=== PATIENT | male | born 1965 | race Caucasian/White ===

== ENCOUNTER 2024-01-06 09:04 | Outpatient (OUT) | payer BC, SELFPAY ==
[2024-01-06 09:27] LABS: Basophils Absolute Auto 0.1 10^3/uL (0.0-0.1); Eosinophils Absolute Auto 0.1 10^3/uL (0.0-0.7); Eosinophils Percent Auto 1.5 % (0.9-7.0); Hematocrit 45.4 % (42.0-54.0); Hemoglobin 14.9 g/dL (14.0-18.0); Immature Granulocytes Abs Auto 0.01 10^3/uL (0.00-0.03); Immature Granulocytes Pct Auto 0.1 % (0.0-0.5); Lymphocytes Absolute Auto 1.8 10^3/uL (1.2-3.8); Lymphocytes Percent Auto 24.9 % (20.5-60.0); Mean Corpuscular HGB Conc 32.8 g/dL (29.9-35.2); Mean Corpuscular Hemoglobin 28.3 pg (25.9-34.0); Mean Corpuscular Volume 86.1 fL (80.0-94.0); Mean Platelet Volume 10.5 fL (9.5-13.5); Monocytes Absolute Auto 0.6 10^3/uL (0.3-0.8); Monocytes Percent Auto 8.3 % (1.7-12.0); Neutrophils Absolute Auto 4.7 10^3/uL (1.4-6.5); Neutrophils Percent Auto 64.2 % (43.0-75.0); Platelet Count 242 10^3/uL (150-450); Red Blood Count 5.27 10^6/uL (4.70-6.10); Red Cell Distribution Width 12.5 % (11.0-15.0); White Blood Count 7.3 10^3/uL (4.0-11.0)
[2024-01-06 09:42] LABS: Estimated Average Glucose 111 mg/dL; Glycohemoglobin A1C 5.5 % (4.5-6.2)
[2024-01-06 10:58] LABS: Alanine Aminotransferase 23 U/L (16-63); Albumin Globulin Ratio 1.1; Albumin Level 3.8 g/dL (3.4-5.0); Alkaline Phosphatase 73 U/L (46-116); Aspartate Amino Transferase 13 U/L (15-37); BUN Creatinine Ratio 15.4; Bilirubin Total 0.4 mg/dL (0.2-1.0); Calcium 9.1 mg/dL (8.5-10.1); Carbon Dioxide 27.3 mmol/L (21.0-32.0); Chloride 102 mmol/L (98-107); Chol HDL Ratio 4.5; Cholesterol 200 mg/dL (<=200); Estimated GFR (African America >60 (>=60); Estimated GFR (Non-African Ame >60 (>=60); Free T3 3.45 pg/mL (2.18-3.98); Globulin 3.5 g/dL; Glucose 92 mg/dL (74-106); HDL Cholesterol 44 mg/dL (40-60); Potassium 4.3 mmol/L (3.5-5.1); Sodium 138 mmol/L (136-145); Thyroid Stimulating Hormone 4.177 uIU/mL (0.358-3.740); Total Protein 7.3 g/dL (6.4-8.2); Triglycerides 195 mg/dL (<=150)
[2024-01-06 11:03] LABS: Prostate Specific Antigen Scrn 4.09 ng/mL (<=4.00)
[2024-01-08 04:07] LABS: PSA, Free 0.63 ng/mL; Prostate Specific Ag 3.3 ng/mL (0.0-4.0)
== END 2024-01-06 09:05 | disposition home or self-care (01) ==
LOC: LAB 09:07
PROVIDERS: PCP Family Medicine; Visit Provider Family Medicine
DX: Z00.00 Encounter for general adult medical examination without abnormal findings (principal); R97.20 Elevated prostate specific antigen [PSA]
CPT/HCPCS: 36415; 80053; 80061; 83036; 84153; 84154; 84436; 84443; 84481; 85025; G0103

== ENCOUNTER 2024-04-06 08:14 | Outpatient (OUT) | payer BC, SELFPAY ==
--- OUTSIDE RECORDS SUMMARY | 2024-04-06 08:28 | XMS_ITS | CCD ---
Author Organization 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 Role Phone DR ANDREA TORRES Admitting Unavailable SEBASTIÁN, DR MENDEZ Attending Unavailable SEBASTIÁN, DR MENDEZ Primary Care Unavailable SEBASTIÁN, DR MENDEZ Consulting Unavailable REQUEST, NONE LISTED Admitting Unavaila ble REQUEST, NONE LISTED Attending Unavaila ble SEBASTIÁN, DR MENDEZ Primary Care Unavailable REQUEST, NONE LISTED Consulting Unavaila ble Unavailable Primary Care Provider Unavailabl e Andrea Torres Primary Care Physician [phone] Jeff BAILEY Attending Unavailable Jeff BAILEY Attending Unavailable Andrea Torres Referring Unavailable MD Andrea Torres Primary Care Provider MD Ken Linda Attending Provider [phone] Ken Linda Attending Unavailable Ken Linda Admitting Unavailable Andrea Torres Primary Care Unavailable Medications Current Medications Medication Drug Class(es) Dates Sig (Normalized) Sig (Original) cetirizine hydrochloride 10 mg oral tablet (2 sources) Histamine-1 Receptor Antagonist Start: 03-30-2024 take 1 tablet by mouth once daily Cetirizine (24hour Allergy) 10 mg tablet Active 10 MG PO Daily March 30, 2024 12:00am Start: 02-11-2024 Zyrtec Daily, Refills(s) 0 Start Date: 02/11/24 Status: Ordered Emergen-C (2 sources) Start: 03-30-2024 take 1 tablet by charli th once daily Emergen-C Active 1 TAB PO Daily March 30, 2024 12:00am Start: 02-11-2024 Emergen-C Refi ll(s) 0 Start Date: 02/11/24 Status: Ordered minocycline 100 mg oral capsule (2 sources) Tetracycline-class Drug Start: 03-18-2024 take 100 mg by mouth once daily Minocycline Active 100 MG PO Daily March 18, 2024 12:00am Start: 02-11-2024 minocycline 10 0 mg Cap Refills(s) 0 Start Date: 02/11/24 Status: Ordered Aleve (1 source) Nonsteroidal Anti-inflammatory Drug Start: 02-11-2024 take 1 mg by mouth every twelve hours Aleve mg, Oral, q12hr, Refills(s) 0 Start Date: 02/11/24 Status: Ordered Sod Picosulf-Mag Ox-Citric Ac (1 source) Start: 01-29-2024 take 1 mL by mouth once daily Sod Picosulf-Mag Ox-Citric Ac (Clenpiq) 10 mg-3.5 gram- 12 gram/175 mL solution Active 175 ML PO Daily 1 January 29, 2024 12:00am please follow instructions provided by Dr. Linda's office. tamsulosin hydrochloride 0.4 mg oral capsule (2 sources) alpha-Adrenergic Gabriela Start: 03-18-2024 take 0.4 mg by mouth once daily Tamsulosin Active 0.4 MG PO Daily March 18, 2024 12:00am Start: 02-11-2024 tamsulosin 0.4 mg Cap Refills(s) 0 Start Date: 02/11/24 Status: Ordered Problems Problem Classification Problem Date Documented Da te Episodic/Chronic Hyperplasia of prostate (2 sources) Benign prostatic hypertrophy with outflow obstruction; Translations: [Benign prostatic hyperplasia with lower urinary tract symptoms] Onset: 02-11-2024 Chronic Other screening for suspected conditions (not mental disorders or infectious disease) (4 sources) Encounter for screening for malignant neoplasm of prostate; Translations: [Raised prostate specific antigen] Onset: 02-07-2022 Episodic Urinary tract infections (1 source) Urinary tract infectious disease; Translations: [Urinary tract infection, site not specified] Episodic Results Test Name Value Interpretation Reference Range Facility [facility] 02-12-2024 Forms [id number]#1 .00TIFF [facility] Physician Referralon 024 Physician Referral [id number]# 1.00TIFF [facility] Screenson 02-12-2024 Screens [id number] 1.00TIFF Normal [facility] Patient Educationon 02-11-20 Patient Education Oncology Prostate Cancer Screening Prostate cancer screening is testing that is done to check for the presence of prostate cancer in men. The prostate gland is a walnut-sized gland that is located below the bladder and in front of the rectum in males. The function of the prostate is to add fluid to semen during ejaculation. Prostate cancer is one of the most common types of cancer in men. Who should have prostate cancer screening? Screening recommendations vary based on age and other risk factors, as well as between the professional organizations who make the recommendations. In general, screening is recommended if: ? You are age 50 to 70 and have an average risk for prostate cancer. You should talk with your health care provider about your need for screening and how often screening should be done. Because most prostate cancers are slow growing and will not cause , screening in this age group is generally reserved for men who have a 10- to 15-year life expectancy. ? You are younger than age 50, and you have these risk factors: ? Having a father, brother, or uncle who has been diagnosed with prostate cancer. The risk is higher if your family member's cancer occurred at an early age or if you have multiple family members with prostate cancer at an early age. ? Being a male who is Black or is of [place] or sub-Saharan descent. In general, screening is not recommended if: ? You are younger than age 40. ? You are between the ages of 40 and 49 and you have no risk factors. ? You are 70 years of age or older. At this age, the risks that screening can cause are greater than the benefits that it may provide. If you are at high risk for prostate cancer, your health care provider may recommend that you have screenings more often or that you start screening at a younger age. How is screening for prostate cancer done? The recommended prostate cancer screening test is a blood test called the prostate-specific antigen (PSA) test. PSA is a protein that is made in the prostate. As you age, your prostate naturally produces more PSA. Abnormally high PSA levels may be caused by: ? Prostate cancer. ? An enlarged prostate that is not caused by cancer (benign prostatic hyperplasia, or BPH). This condition is very common in older men. ? A prostate gland infection (prostatitis) or urinary tract infection. ? Certain medicines such as male hormones (like testosterone) or other medicines that raise testosterone levels. A rectal exam may be done as part of prostate cancer screening to help provide information about the size of your prostate gland. When a rectal exam is performed, it should be done after the PSA level is drawn to avoid any effect on the results. Depending on the PSA results, you may need more tests, such as: ? A physical exam to check the size of your prostate gland, if not done as part of screening. ? Blood and imaging tests. ? A procedure to remove tissue samples from your prostate gland for testing (biopsy). This is the only way to know for certain if you have prostate cancer. What are the benefits of prostate cancer screening? ? Screening can help to identify cancer at an early stage, before symptoms start and when the cancer can be treated more easily. ? There is a small chance that screening may lower your risk of dying from prostate cancer. The chance is small because prostate cancer is a slow-growing cancer, and most men with prostate cancer from a different cause. What are the risks of prostate cancer screening? The main risk of prostate cancer screening is diagnosing and treating prostate cancer that would never have caused any symptoms or problems. This is called overdiagnosisand overtreatment. PSA screening cannot tell you if your PSA is high due to cancer or a different cause. A prostate biopsy is the only procedure to diagnose prostate cancer. Even the results of a biopsy may not tell you if your cancer needs to be treated. Slow-growing prostate cancer may not need any treatment other than monitoring, so diagnosing and treating it may cause unnecessary stress or other side effects. Questions to ask your health care provider ? When should I start prostate cancer screening? ? What is my risk for prostate cancer? ? How often do I need screening? ? What type of screening tests do I need? ? How do I get my test results? ? What do my results mean? ? Do I need treatment? Where to find more information ? The [employer]: www.cancer.org ? [employer]: www.auanet.org Contact a health care provider if: ? You have difficulty urinating. ? You have pain when you urinate or ejaculate. ? You have blood in your urine or semen. ? You have pain in your back or in the area of your prostate. Summary ? Prostate cancer is a common type of cancer in men. The prostate gland is located below the bladder and in front of the rectum. This gland adds flu (more content not included)... 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 Referral per Andrea Torres MD due to abnormal PSA PSA: 4.09 01/06/24 3.3 & 19.1% 01/08/24 Could not give a urine sample yet today Rafaeljessika put him on Tamsulosin for Nocturia- started January 14 2024 IPSS 11 Dysuria: denies Incomplete bladder emptying: denies Hematuria: _denies visible blood Frequency: _every hour Urgency: denies Nocturia: denies ( was 2-3x nightly before Tamsulosin) Stream: denies hesitation, normal stream Leaking: _denies Post void dripping: _yes Wearing pads/ Depends: _denies Urge incontinence: _denies Stress incontinence: _denies Incontinence without Sensory Awareness: _denies Abdominal pain: _denies Flank pain: _denies Sexual complaints: _denies History of Present Illness Tests reviewed: reviewed UA, PSA, and external records. I have reviewed the previous health record information and history for this patient from external provider. I have reviewed and verified the staff HPI to be accurate for this encounter. There have been no associated fever, chills, flank pain, or blood in the urine. Denies any urinary infections since last encounter. Review of Systems PHQ Score Initial Depression Screen Score: 0 SCORE ROS - Provider Constitutional: denies weight loss, denies hot flashes. Eyes: denies eye problems. Gastrointestinal: denies nausea, denies vomiting. Cardiovascular: denies chest pain or angina. Integumentary: no dryness Musculoskeletal: denies musculoskeletal symptoms. ENMT: denies otolaryngeal symptoms. Respiratory: no shortness of breath. Heme/Lymph: denies easy bleeding tendency, denies easy bruising tendency. Psychiatric: no confusion, no anxiety. Genitourinary: See HPI. Physical Exam Vitals & Measurements T: 37.0 ?C(Temporal Artery) HR: 84(Peripheral) BP: 136/84 HT: 71 in HT: 180 cm WT: 105.5 kg WT: 232.1 lb BMI: 32.56 General Appearance: alert, no distress, well nourished, well developed male. Genitourinary: normal scrotum, normal testes, normal urethra, normal epididymis, normal vas deferens/spermatic cord. Bladder: nonpalpable. Penis: normal shaft, normal glans. Prostate: normal prostate, estimated weight 35 gms, no hard nodule observed. Assessment/Plan Isma is a 58 yo male referred by Dr. Torres for abnormal PSA. Portions of this record may have been created with voice recognition artificial intelligence software, specifically [employer], [employer] and or [employer]. Substitutions may have occurred due to the inherent limitations of voice recognition and artificial intelligence software. 1. Elevated PSA (R97.20: Elevated prostate specific antigen [PSA]) PSA: 12/10/18 - 2.45 12/11/19 - 2.49 02/01/22 - 2.56 01/06/24 - 4.09 01/08/24 - 3.3 & 19.1% Pt states he had a SANDY prior to one of his latest PSA levels. He has an elevated PSA, which could indicate prostate cancer, prostate infection, prostate inflammation without infection, prostate manipulation, or benign prostate enlargement (BPH). The importance of the rate of PSA rise has also been discussed. The options for management have been discussed, including prostate biopsy versus close monitoring of the PSA over time. Trend remains elevated. Discussed options such as continued surveillance vs MRI which could indicate a bx pending findings. Will proceed with repeating PSA. -Follow up in 3 months w/ PSA FT 2. BPH with urinary obstruction (N40.1: Benign prostatic hyperplasia with lower urinary tract symptoms) IPSS 11 Dr. Torres started pt on Flomax at the end of December. Started on med due to nocturia. Prior to Flomax pt was getting up 2-3x per night. Reports he is no longer getting up during the night. Denies SEs while taking Flomax. Does report post void dribbling. SANDY: 35g, no nodules. -Cont Flomax 0.4mg qd -Pt will leave UA sample prior to leaving office Overall the patient is sent by Dr. Barger for elevation of his PSA. His holly values looking back over the years are as noted above. Interestingly the PSA dropped by about 0.7 within a couple days when the free percent was actually evaluated. For these reasons is my recommendation to closely monitor the PSA so we will repeat 1 with a repeat office visit about 3 months from his latest blood draw. He knows not to have intercourse/ejaculati on prior to the PSA level. He understands that this may increase the PSA slightly. He agrees with the plan and also understands that the workup for prostate cancer would involve an MRI of the prostate which could lead to a fusion biopsy. Follow-up With When Contact Information Jeff BAILEY MD, URL [address] [id number]- Additional Instructions: 3 mos w/ PSA FT Patient Education Prostate Cancer Screening I, Rosa Elena Temple, personally scribed for Dr. Bailey on 02/11/2024 09:29:03. . Documentati (more content not included)... Normal [facility] Comment on above: Result Comment: Elec tronically Signed By: Jeff BAILEY MD\.br\Date and Time Signed: 02/11/24 09:31 EDT\.br\Electronically Co-Signed By: Rosa Elena Temple\.br\Date and Time Co-Signed: 02/11/24 09:29 EDT CBC AUTO DIFFon 02-01-2022 BASO # 0.1 103/ul Normal 0.0-0.1 [facility] Comment on above: Performed By: #### C BC #### [facility] [address] [place] [address] Dr. Monster Cobian Basophils/100 WBC (Bld) 0.8 % Normal 0.2-2.0 [facility] Comment on above: Performed By: #### C BC #### [facility] [address] [address] [address] Mnoster Cobian EO # 0.1 103/ul Normal 0.0-0.7 [facility] Comment on above: Performed By: #### C BC #### [facility] [address] [place] [address] Dr. Monster Cobian Eosinophils/100 WBC (Bld) 1.6 % Normal 0.9-7.0 [facility] Comment on above: Performed By: #### C BC #### [facility] [address] [place] [address] Dr. Monster Cobian Erythrocyte distribution width (RBC) [Ratio] 12.4 % Normal 11.0-15.0 [facility] Comment on above: Performed By: #### C BC #### [facility] [address] [place] [address] Dr. Monster Cobian Hematocrit (Bld) [Volume fraction] 44.1 % Normal 42.0-54.0 [facility] Comment on above: Performed By: #### C BC #### [facility] [address] [place] [address] Dr. Monster Cobian Hemoglobin (Bld) [Mass/Vol] 14.9 g/dL Normal 14.0-18.0 [facility] Comment on above: Performed By: #### C BC #### [facility] [address] [place] [address] Dr. Monster Cobian IG # 0.02 10e3/ul Normal 0.00-0.03 [facility] Comment on above: Performed By: #### C BC #### [facility] [address] [place] [address] Dr. Monster Cobian IG % 0.3 % Normal 0.0-0.5 [facility] Comment on above: Performed By: #### C BC #### [facility] [address] [place] [address] Dr. Monster Cobian LYMPH # 2.0 103/ul Normal 1.2-3.8 [facility] Comment on above: Performed By: #### C BC #### [facility] [address] [place] [address] Dr. Monster Cobian Lymphocytes/100 WBC (Bld) 26.2 % Normal 20.5-60.0 [facility] Comment on above: Performed By: #### C BC #### [facility] [address] [place] [address] Dr. Monster Cobian MANUAL DIFF REQ NO Normal [facility] Comment on above: Performed By: #### C BC #### [facility] [address] [address] [address] Monster Cobian MCH (RBC) [Entitic mass] 29.0 pg Normal 25.9-34.0 [facility] Comment on above: Performed By: #### C BC #### [facility] [address] [place] [address] Dr. Monster Cobian MCHC (RBC) [Mass/Vol] 33.8 g/dL Normal 29.9-35.2 [facility] Comment on above: Performed By: #### C BC #### [facility] [address] [place] [address] Dr. Monster Cobian MCV (RBC) [Entitic vol] 85.8 fL Normal 80.0-94.0 [facility] Comment on above: Performed By: #### C BC #### [facility] [address] [place] [address] Dr. Monster Cobian MONO # 0.6 103/ul Normal 0.3-0.8 [facility] Comment on above: Performed By: #### C BC #### [facility] [address] [place] [address] Dr. Monster Cobian Monocytes/100 WBC (Bld) 7.9 % Normal 1.7-12.0 [facility] Comment on above: Performed By: #### C BC #### [facility] [address] [place] [address] Dr. Monster Cobian NEUT # 4.9 103/ul Normal 1.4-6.5 [facility] Comment on above: Performed By: #### C BC #### [facility] [address] [place] [address] Dr. Monster Cobian Neutrophils/100 WBC (Bld) 63.2 % Normal 43.0-75.0 [facility] Comment on above: Performed By: #### C BC #### [facility] [address] [place] [address] Dr. Monster Cobian Platelet mean volume (Bld) [Entitic vol] 9.7 fL Normal 9.5-13.5 [facility] Comment on above: Performed By: #### C BC #### [facility] [address] [address] [address] Monster Cobian PLT 251 103/ul Normal 150-450 [facility] Comment on above: Performed By: #### C BC #### [facility] [address] [address] [address] Monster Cobian RBC 5.14 106/ul Normal 4.70-6.10 [facility] Comment on above: Performed By: #### C BC #### [facility] [address] [address] [address] Monster Cobian WBC 7.7 103/ul Normal 4.0-11.0 [facility] Comment on above: Performed By: #### C BC #### [facility] [address] [place] [address] Dr. Monster Cobian GLYCOHEMOGLOBIN A1Con 2021 ADA RECOMMENDATION ADA THERAPEUTIC TARGET 6.0 - 7.0 ACTION SUGGESTED > 7.0 Normal [facility] Comment on above: Performed By: #### A 1C #### [facility] [address] [place] [address] Dr. Monster Cobian Glucose [Mass/Vol] 114 mg/dL Normal [facility] Comment on above: Performed By: #### A 1C #### [facility] [address] [place] [address] Dr. Monster Cobian HbA1c (Bld) [Mass fraction] 5.6 % Normal <=6.0 [facility] Comment on above: Performed By: #### A 1C #### [facility] [address] [place] [address] Dr. Monster Cobian LIPID PROFILEon 02-01-2022 CHOL-HDL RATIO NORM SEE BELOW Normal [facility] Comment on above: Result Comment: 3.3 - 4.4 LOW RISK 4.4 - 7.1 AVERAGE RISK 7.1 - 11.0 MODERATE RISK >11.0 HIGH RISK Performed By: #### C MP, LIPID #### [facility] [address] [place] [address] Dr. Monster Cobian Cholesterol [Mass/Vol] 210 mg/dL Critically high <=200 [facility] Comment on above: Performed By: #### C MP, LIPID #### [facility] [address] [address] [address] Monster Cobian Cholesterol in HDL [Mass/Vol] 48 mg/dL Normal 40-60 [facility] Comment on above: Performed By: #### C MP, LIPID #### [facility] [address] [address] [address] Monster Cobian Cholesterol in LDL [Mass/Vol] 140.6 mg/dL Normal [facility] Comment on above: Performed By: #### C MP, LIPID #### [facility] [address] [address] [address] Monster Cobian Cholesterol.total/Cho lesterol in HDL [Mass ratio] 4.4 {ratio} Normal [facility] Comment on above: Performed By: #### C MP, LIPID #### [facility] [address] [address] [address] Monster Cobian HDL NORMAL > or = 60 mg/dl - LO W CARDIOVASCULAR RISK <40 mg/dl - HIGH CARDIOVASCULAR RISK Normal [facility] Comment on above: Performed By: #### C MP, LIPID #### [facility] [address] [address] [address] Monster Cobian LDL CALC NORMAL SEE BELOW Normal [facility] Comment on above: Result Comment: <100 mg/dl OPTIMAL 100 - 129 mg/dl NEAR OR ABOVE OPTIMAL 130 - 159 mg/dl BORDERLINE HIGH 160 - 189 mg/dl HIGH >190 mg/dl VERY HIGH Performed By: #### C MP, LIPID #### [facility] [address] [address] [address] Monster Cobian Triglyceride [Mass/Vol] 107 mg/dL Normal <=150 [facility] Comment on above: Performed By: #### C MP, LIPID #### [facility] [address] [address] [address] Monster Cobian VLDL CALC 21.4 mg/dL Normal [facility] Comment on above: Performed By: #### C MP, LIPID #### [facility] [address] [place] [address] Dr. Monster Cobian PROF 14(COMP METB)on 022 Albumin [Mass/Vol] 3.9 g/dL Normal 3.4-5.0 [facility] Comment on above: Performed By: #### C MP, LIPID #### [facility] [address] [place] [address] Dr. Monster Cobian Albumin/Globulin [Mass ratio] 1.1 {ratio} Normal [facility] Comment on above: Performed By: #### C MP, LIPID #### [facility] [address] [place] [address] Dr. Monster Cobian ALP [Catalytic activity/Vol] 69 U/L Normal 46-116 [facility] Comment on above: Performed By: #### C MP, LIPID #### [facility] [address] [place] [address] Dr. Monster Cobian ALT [Catalytic activity/Vol] 23 U/L Normal 16-63 [facility] Comment on above: Performed By: #### C MP, LIPID #### [facility] [address] [place] [address] Dr. Monster Cobian Anion gap [Moles/Vol] 10.2 mmol/L Normal [facility] Comment on above: Performed By: #### C MP, LIPID #### [facility] [address] [place] [address] Dr. Monster Cobian AST [Catalytic activity/Vol] 13 U/L Critically low 15-37 [facility] Comment on above: Performed By: #### C MP, LIPID #### [facility] [address] [place] [address] Dr. Monster Cobian Bilirubin [Mass/Vol] 0.6 mg/dL Normal 0.2-1.3 [facility] Comment on above: Performed By: #### C MP, LIPID #### [facility] [address] [place] [address] Dr. Monster Cobian Calcium [Mass/Vol] 9.0 mg/dL Normal 8.5-10.1 [facility] Comment on above: Performed By: #### C MP, LIPID #### [facility] [address] [address] [address] Monster Cobian Chloride [Moles/Vol] 104 mmol/L Normal 98-107 [facility] Comment on above: Performed By: #### C MP, LIPID #### [facility] [address] [address] [address] Monster Cobian CO2 [Moles/Vol] 28.6 mmol/L Normal 22.0-30.0 [facility] Comment on above: Performed By: #### C MP, LIPID #### [facility] [address] [address] [address] Monster Cobian Creatinine [Mass/Vol] 0.96 mg/dL Normal 0.66-1.25 [facility] Comment on above: Performed By: #### C MP, LIPID #### [facility] [address] [place] [address] Dr. Monster Cobian EGFR-AF STATELESS >60 Normal >=60 [facility] Comment on above: Performed By: #### C MP, LIPID #### [facility] [address] [place] [address] Dr. Monster Cobian EGFR-NON AF STATELESS >60 Normal >=60 [facility] Comment on above: Performed By: #### C MP, LIPID #### [facility] [address] [place] [address] Dr. Monster Cobian Globulin (S) [Mass/Vol] 3.5 g/dL Normal [facility] Comment on above: Performed By: #### C MP, LIPID #### [facility] [address] [place] [address] Dr. Monster Cobian Glucose [Mass/Vol] 97 mg/dL Normal 74-106 [facility] Comment on above: Performed By: #### C MP, LIPID #### [facility] [address] [place] [address] Dr. Monster Cobian Potassium [Moles/Vol] 4.8 mmol/L Normal 3.4-5.0 [facility] Comment on above: Performed By: #### C MP, LIPID #### [facility] [address] [place], [place] [address] Dr. Monster Cobian Protein [Mass/Vol] 7.4 g/dL Normal 6.1-8.2 [facility] Comment on above: Performed By: #### C MP, LIPID #### [facility] [address] [place], [place] [address] Dr. Monster Cobian Sodium [Moles/Vol] 138 mmol/L Normal 137-145 [facility] Comment on above: Performed By: #### C MP, LIPID #### [facility] [address] [place], [place] [address] Dr. Monster Cobian Urea nitrogen [Mass/Vol] 17.0 mg/dL Normal 7.0-18.0 [facility] Comment on above: Performed By: #### C MP, LIPID #### [facility] [address] [place] [address] [address] Monster Cobian Urea nitrogen/Creatinine [Mass ratio] 17.7 mg/mg Normal [facility] Comment on above: Performed By: #### C MP, LIPID #### [facility] [address] [place], [place] [address] Dr. Monster Cobian Vital Signs Date Time Vital Sign Value Performing Clinician Mayelin nur 03-30-2024 09:19-0400 Diastolic blood pressure 90 mm[Hg] MD Andrea Torres Work Phone: [facility] 03-30-2024 09:19-0400 Heart rate 65 /min MD Andrea Torres Work Phone: [facility] 03-30-2024 09:19-0400 Respiratory rate 18 /min MD Andrea Torres Work Phone: [facility] 03-30-2024 09:190400 SaO2% (BldA) [Mass fraction] 99 % MD Andrea Torres Work Phone: [facility] 03-30-2024 09:190400 Systolic blood pressure 126 mm[Hg] MD Andrea Torres Work Phone: [facility] 03-30-2024 08:12-0400 Body height 177.8 cm MD Andrea Torres Work Phone: [facility] 03-30-2024 08:12-0400 Body weight 99.79 kg MD Andrea Torres Work Phone: [facility] 02-11-2024 09:02-0400 Blood Pressure Location Jeff BAILEY [facility] 02-11-2024 09:02-0400 Body temperature 98.6 [degF] Jeff BAILEY [facility] 02-11-2024 09:02-0400 Diastolic blood pressure 84 mm[Hg] Jeff BAILEY [facility] 02-11-2024 09:02-0400 Heart rate 84 /min Jeff BAILEY [facility] 02-11-2024 09:02-0400 Systolic blood pressure 136 mm[Hg] Jeff BAILEY [facility] Encounters Encounter Date Encounter Type Care Provider Facility Start: 04-13-2024 ambulatory Jeff BAILEY Facility :[facility] Start: 03-30-2024 Non-patient / Non-visit MD Andrea Torres Work Phone: [facility] G[facility] Work Phone: Start: 03-30-2024 End: 03-30-2024 Admission to same day surgery center MD Andrea Torres Work Phone: [facility] Work Phone: Start: 03-30-2024 End: 03-30-2024 ambulatory MD Andrea Torres Work Phone: [facility] Work Phone: Start: 02-11-2024 End: 02-12-2024 ambulatory Jeff BAILEY Facility:[facility] Start: 02-11-2024 End: 02-11-2024 Patient encounter procedure Jeff BAILEY [facility] Start: 01-09-2024 ambulatory eJff BAILEY Facility:[facility] Start: 05-04-2022 Orders Only Jonathan Schroeder MD Work Phone: Urology Comment on above: Urinary tract infect ion with hematuria, site unspecified (Primary Dx) Start: 02-07-2022 Encounter for genera l adult medical examination without abnormal findings DR ANDREA TORRES [facility] Start: 02-01-2022 End: 02-02-[address] ANDREA TORRES Facility:[facility] Start: 02-01-2022 End: 02-02-2022 Encounter for general adult medical examination without abnormal findings DR ANDREA TORRES Facility:[facility] Start: 02-09-2021 End: 02-10-[address] MILLS LISTED REQUEST Facility:[facility] Procedures Date Procedure Procedure Detail Performing Clinician Start: 03-30-2024 Screening colonoscopy Reba Torres Work Phone: Start: 02-01-[address] VIV TORRES Comment on above: Performed By: #### P [facility] #### [facility] [address] [place] [address] Dr. Monster Cobian Plan of Treatment Date Care Activity Detail Author Start: 03-30-2024 [facility] Bacteria identified in Urine by Culture URINE CULTURE Microbiology Routine Urinary tract infection with hematuria, site unspecified Ordered: 05/05/2022 [facility] Work Phone: Comment on above: Ordered: 05/05/2022 Patient Education Diverticulosis (DC) Know your Meds [facility] Work Phone: Immunizations Immunization Date Immunization Notes Care Provider Filiberto levin 10-06-2023 zoster vaccine recombinant Jeff BAILEY [facility] [place] 07-10-2023 zoster vaccine recombinant Jeff BAILEY [facility] 08-11-2021 influenza, unspecifi ed formulation Jeff [facility] 02-09-2021 SARS-CoV-2 (COVID-19 ) mRNA BNT-162b2 vax [employer] [facility] 01-20-2021 SARS-CoV-2 (COVID-19 ) mRNA BNT-162b2 vax [employer] [facility] 09-17-2019 influenza, unspecifi ed formulation [employer] [facility] Payers Date Payer Category Payer Unknown [id number] 1965 Unknown [id number] [id number] 1965 Unknown [id number] [id number] 1959 Self-pay 1959 Unknown [id number] Unknown [id number] Unknown [id number] [id number] [id number] Social History Date Type Detail Facility Tobacco smoking status SDIS Tobacco smoking consumption unknown [facility] Start: 1965 Sex Assigned At Not on file C [facility] Start: 02-11-2024 End: 03-30-2024 Tobacco smoking status Never smoked tobacco (finding) [facility] Tobacco smoking status Never [facility] Sex Assigned At Male [facility] Start: 1965 Sex Assigned At Male [facility] Goals Date Patient Goal Desired Activity /State Functional Status Date Assessment Result Facility 02-11-2024 Functional Status N/A [facility] History and physical note 03-30-2024 Note Date & Type Note Facility 03-30-2024 History and physical note Note Date/Time March 30, 2024 8:33 am [facility] [address] [place] [id number] Gastroenterology H&P Signed Patient: Isma Hwang MR#: [id number] : 1965 Acct:[id number] Age/Sex: 58 / M Adm Date: 4 Loc: Room: Type: [facility] Attending Dr: Ken Linda MD Copies to: MD Andrea Guzman MD~ Date of Service: 03/30/2024 HISTORY & PHYSICAL: Patient's history with special attention to the cardiovascular, pulmonary systems and the current problem was reviewed with the patient immediately prior to the procedure. Present medications and doses reviewed in the EMR. Allergies and pertinent laboratory tests were also reviewedat this time in the EMR. The physical examination, as below, was then performed. Indication, assessment and HPI: 58-year-old male presents for screening colonoscopy Family history of GI malignancy? No PHYSICAL EXAMINATION Mouth and Pharynx : Moist mucus membranes, normal dentition Cardiac: Regular rate, regular rhythm Pulmonary: Clear to auscultation bilaterally, no wheezing Neurological: Alert and oriented x3, no focal deficits noted Abdomen: Abdomen soft, non-tender REVIEW OF SYSTEMS Constitutional: Denies malaise, fevers Cardiovascular: Denies chest pain, palpitations Respiratory: Denies shortness of breath, wheezing Gastrointestinal: Per HPI Genitourinary: Denies dysuria, polyuria Musculoskeletal: Denies joint swelling, joint stiffness Neurological: Denies numbness, tingling Integumentary: Denies rashes, skin lesions Endocrine: Denies fatigue, weight loss Written informed consent obtained from the patient. Risks (including but not limited to perforation, infection, bloating, bleeding, need for emergent surgeryand loss of life), benefits and alternatives explained and questions answered. The patient verbalized understanding. Based on history patient is an appropriate candidate for the procedure. Ken Linda MD Documented By: Ken Linda MD 03/30/24 0833 Signed By: <Electronically signed by Ken Linda MD> 03/30/248[address] [facility] Work Phone: Procedure note 03-30-2024 Note Date & Type Note Facility 03-30-2024 Procedure note [facility] Hospital Discharge instructions 02-11-2024 Note Date & Type Note Facility 02-11-2024 Hospital Discharge instructions Patient Education 02/11/2024 09:25:27 Prostate Cancer Screening Prostate Cancer Screening Prostate cancer screening is testing that is done to check for the presence of prostate cancer in men. The prostate gland is a walnut-sized gland that is located below the bladder and in front of the rectum in males. The function of the prostate is to add fluid to semen during ejaculation. Prostate cancer is one of the most common types of cancer in men. Who should have prostate cancer screening? Screening recommendations vary based on age and other risk factors, as well as between the professional organizations who make the recommendations. In general, screening is recommended if: You are age 50 to 70 and have an average risk for prostate cancer. You should talk with your health care provider about your need for screening and how often screening should be done. Because most prostate cancers are slow growing and will not cause , screening in this age group is generally reserved for men who have a 10- to 15-year life expectancy. You are younger than age 50, and you have these risk factors: ?Having a father, brother, or uncle who has been diagnosed with prostate cancer. The risk is higher if your family member's cancer occurred at an early age or if you have multiple family members with prostate cancer at an early age. ?Being a male who is Black or is of [place] or sub-Saharan descent. In general, screening is not recommended if: You are younger than age 40. You are between the ages of 40 and 49 and you have no risk factors. You are 70 years of age or older. At this age, the risks that screening can cause are greater than the benefits that it may provide. If you are at high risk for prostate cancer, your health care provider may recommend that you have screenings more often or that you start screening at a younger age. How is screening for prostate cancer done? The recommended prostate cancer screening test is a blood test called the prostate-specific antigen (PSA) test. PSA is a protein that is made in the prostate. As you age, your prostate naturally produces more PSA. Abnormally high PSA levels may be caused by: Prostate cancer. An enlarged prostate that is not caused by cancer (benign prostatic hyperplasia, or BPH). This condition is very common in older men. A prostate gland infection (prostatitis) or urinary tract infection. Certain medicines such as male hormones (like testosterone) or other medicines that raise testosterone levels. A rectal exam may be done as part of prostate cancer screening to help provide information about the size of your prostate gland. When a rectal exam is performed, it should be done after the PSA level is drawn to avoid any effect on the results. Depending on the PSA results, you may need more tests, such as: A physical exam to check the size of your prostate gland, if not done as part of screening. Blood and imaging tests. A procedure to remove tissue samples from your prostate gland for testing (biopsy). This is the only way to know for certain if you have prostate cancer. What are the benefits of prostate cancer screening? Screening can help to identify cancer at an early stage, before symptoms start and when the cancer can be treated more easily. There is a small chance that screening may lower your risk of dying from prostate cancer. The chance is small because prostate cancer is a slow-growing cancer, and most men with prostate cancer from a different cause. What are the risks of prostate cancer screening? The main risk of prostate cancer screening is diagnosing and treating prostate cancer that would never have caused any symptoms or problems. This is called overdiagnosisand overtreatment. PSA screening cannot tell you if your PSA is high due to cancer or a different cause. A prostate biopsy is the only procedure to diagnose prostate cancer. Even the results of a biopsy may not tell you if your cancer needs to be treated. Slow-growing prostate cancer may not need any treatment other than monitoring, so diagnosing and treating it may cause unnecessary stress or other side effects. Questions to ask your health care provider When should I start prostate cancer screening? What is my risk for prostate cancer? How often do I need screening? What type of screening tests do I need? How do I get my test results? What do my results mean? Do I need treatment? Where to find more information The [employer]: www.cancer.org [employer]: www.auanet.org Contact a health care provider if: You have difficulty urinating. You have pain when you urinate or ejaculate. You have blood in your urine or semen. You have pain in your back or in the area of your prostate. Summary Prostate cancer is a common type of cancer in men. The prostate gland is located below the bladder and in front of the rectum. This gland adds fluid to semen during ejaculation. Prostate cancer screening may identify cancer at an early stage, when the cancer can be treated more easily and is less likely to have spread to other areas of the body. The prostate-specific antigen (PSA) test is the recommended screening test for prostate cancer, but it has associated risks. Discuss the risks and benefits of prostate cancer screening with your health care provider. If you are age 70 or older, the risks that screening can cause are greater than the benefits that it may provide. This information is not intended to replace advice given to you by your health care provider. Make sure you discuss any questions you have with your health care provider. Document Revised: 04/02/2022 Document Reviewed: 04/02/2022 [employer] Patient Education 2022 [employer]. Follow Up Care 01/13/2024 15:32:49 With:LEO DIAZ, Jeff Sanchez, URL Address: [facility] [place] [address]- When: Unknown [facility] Progress note 05-04-2022 Note Date & Type Note Facility 05-04-2022 Note HNO ID: [id number] Author: Lida Sparrow LPN Service: ? Author Type: LICENSED NURSE Type: Progress Notes Filed: 05/05/2022 6:47 PM Note Text: Patient was seen to have SPT exchange from 14fr to 16fr. Urine obtained via new indwelling spt catheter. [facility] History of Present illness Narrative 05-04-2022 Lida Sparrow LPN - 05/04/2022 8:36 AM EDT Note Date & Type Note Facility 05-04-2022 History of Presen t illness Narrative Patient was seen to have SPT exchange from 14fr to 16fr. Urine obtained via new indwelling spt catheter. documented in this encounter [facility] Evaluation + Plan note Note Date & Type Note Facility Evaluation + Plan note Future Appointments Appointment Date:04/13/2024 09:15:00 AM Scheduled Provider:Jeff BAILEY MD Location:[facility] Appointment Type:URO Office Visit Diagnostic Tests PendingPSA Free & Total 02/11/24 [facility] Evaluation note Note Date & Type Note Facility Evaluation note Diagnosis Urinary tract infection with hematuria, site unspecified- Primary documented in this encounter [facility] Evaluation note Note Date & Type Note Facility Evaluation note No assessment information availa [facility] Work Phone: Hospital course Narrative Note Date & Type Note Facility Hospital course Narrative No data available for this section [facility] Progress note Note Date & Type Note Facility Progress note No data available for this section [facility] Summary Purpose Family History No Family History Records Found Relationship Condition Age at Onset Recorded Date/T chucky Not Specified Non-Hodgkin's lymphoma Unknown Diabetes mellitus Unknown father Aneurysm Unknown Diverticulitis Unknown Advance Directives No Advanced Directives Records Found Advance Directive Response Recorded Date/ Time Advance Directives No March 27 1:17pm Chief Complaint and Reason for Visit Chief Complaint Screening Screening Additional Source Comments (unrecognized sect ion and content) No Status Records FoundNo Status Records FoundNo Status Records FoundNo Status Records Found INFORMATION SOURCE (unrecogn ized section and content) DATE CREATED AUTHOR 02/08/2022 [facility] DATE CREATED AUTHOR AUTHOR'S ORGANIZ ATION 05/10/2022 [facility] DATE CREATED AUTHOR AUTHOR'S ORGANIZ ATION 02/13/2024 [facility] DATE CREATED AUTHOR AUTHOR'S ORGANIZ ATION 04/03/2024 [facility] Source Comments (unrecognize d section and content) In the event this informatio n is protected by the Federal Confidentiality of Alcohol and Drug Abuse Patient Records regulations: The Federal rules restrict any use of the information to criminally investigate or prosecute any alcohol or drug abuse patient.[facility] Patient Care team informatio n (unrecognized section and content) Team Status: Active Member Role Status Dates Andrea Torres MD Primary Care Provider Active Team Status: Inactive Member Role Status Dates Andrea Torres MD Primary Care Provider Active Start: March 30, 2024 End: March 30, 2024 Ken Linda MD Attending Provider Active S tart: March 30, 2024 End: March 30, 2024 Team Status: Active Member Role Status Dates Andrea Torres MD Primary Care Provider Active Start: March 30, 2024 Ken Linda MD Attending Provider, Other Provide r Active Start: March 30, 2024 FOR RECORDS PERTAINING TO PATIENTS WHO ARE OR HAVE BEEN ENROLLED IN A CHEMICAL DEPENDENCY/SUBSTANCEABUSE PROGRAM, SOME INFORMATION MAY BE OMITTED. This clinical summary was aggregated from multiple sources. Caution should be exercised in using it in the provision of clinical care. This summary normalizes information from multiple sources, and as a consequence, information in this document may materially change the coding, format and clinical context of patient data. In addition, data may be omitted in some cases. CLINICAL DECISIONS SHOULD BE BASED ON THE PRIMARY CLINICAL RECORDS. [employer] [facility]. provides no warranty or guarantee of the accuracy or completeness of information in this document.
[2024-04-07 12:09] LABS: PSA, Free 0.51 ng/mL; Prostate Specific Ag 2.8 ng/mL (0.0-4.0)
== END 2024-04-06 08:15 | disposition home or self-care (01) ==
LOC: LAB 08:16
PROVIDERS: PCP Family Medicine; Visit Provider Urology
DX: R97.20 Elevated prostate specific antigen [PSA] (principal)
CPT/HCPCS: 36415; 84153; 84154

== ENCOUNTER 2024-11-03 08:42 | Outpatient (OUT) | payer BC, SELFPAY ==
--- NOTE | 2024-11-03 08:57 | XR_ITS ---
[address] [address] Patient Name: SHMUEL DURAN MRN: [id number] date: 1965 Sex: M Assigned Patient Location: LAB Current Patient Location: LAB Accession/Order Number: [id number] Exam Date: 11/03/2024 09:02 Report Date: 11/03/2024 18:36 At the request of: ANDREA LOWERY Procedure: XR cervical spine 2-3V EXAM: XR cervical spine 2-3V HISTORY: Arm Paresthesia Left COMPARISON: None. FINDINGS/IMPRESSION: 1. No acute fracture or dislocation. 2. Prevertebral soft tissues are normal. 3. Normal alignment of the cervical spine. 4. Vertebral body height is preserved. Intervertebral disc height is preserved. 5. Visualized portion of the lung apices is clear. Electronically authenticated by: SHELBI BAZAN Date: 11/03/2024 18:36
[2024-11-03 08:59] LABS: Basophils Absolute Auto 0.1 10^3/uL (0.0-0.1); Basophils Percent Auto 0.8 % (0.2-2.0); Eosinophils Absolute Auto 0.1 10^3/uL (0.0-0.7); Eosinophils Percent Auto 1.2 % (0.9-7.0); Hematocrit 43.2 % (42.0-54.0); Hemoglobin 14.5 g/dL (14.0-18.0); Immature Granulocytes Abs Auto 0.01 10^3/uL (0.00-0.03); Immature Granulocytes Pct Auto 0.1 % (0.0-0.5); Lymphocytes Absolute Auto 1.9 10^3/uL (1.2-3.8); Lymphocytes Percent Auto 22.9 % (20.5-60.0); Mean Corpuscular HGB Conc 33.6 g/dL (29.9-35.2); Mean Corpuscular Volume 86.4 fL (80.0-94.0); Mean Platelet Volume 10.1 fL (9.5-13.5); Monocytes Absolute Auto 0.6 10^3/uL (0.3-0.8); Monocytes Percent Auto 7.1 % (1.7-12.0); Neutrophils Absolute Auto 5.7 10^3/uL (1.4-6.5); Neutrophils Percent Auto 67.9 % (43.0-75.0); Platelet Count 247 10^3/uL (150-450); Red Cell Distribution Width 13.2 % (11.0-15.0); White Blood Count 8.3 10^3/uL (4.0-11.0)
--- OUTSIDE RECORDS SUMMARY | 2024-11-03 09:00 | XMS_ITS | CCD ---
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 Name Role Phone DR ANDREA TORRES Admitting Unavailable MELISSA, DR MENDEZ Attending Unavailable MELISSA, DR MENDEZ Primary Care Unavailable MELISSA, DR MENDEZ Consulting Unavailable REQUEST, NONE LISTED Admitting Unavaila ble REQUEST, NONE LISTED Attending Unavaila ble MELISSA, DR MENDEZ Primary Care Unavailable REQUEST, NONE LISTED Consulting Unavaila ble Unavailable Primary Care Provider Unavailabl e Andrea Torres Primary Care Physician [phone] MD Andrea Torres Primary Care Provider [id number] MD Ken Linda Attending Provider MD Josette Nova Emergency Provider [phone] MD Andrea Torres Primary Care Provider [phone] DO Guilherme Joseph Admit Provider DO Guilherme oJseph Attending Provider MD Sandy Henderson Other Provider Jeff BAILEY Attending Unavailable Jeff BAILEY Attending Unavailable Jeff BAILEY Attending Unavailable Andrea Torres Referring Unavailable Ken Linda Attending Unavailable Ken Linda Admitting Unavailable Andrea Torres Primary Care Unavailable Andrea Torres Primary Care Unavailable Guilherme Joseph Attending Unavailable Guilherme Joseph Admitting Unavailable Guilherme Joseph Attending Unavailable Guilherme Joseph Admitting Unavailable Sandy Henderson Consulting Unavailable Andrea Torres Primary Care Unavailable Allergies Allergy Classification Reported Allergen(s) Allergy Type Date of Onset Reaction(s) Facility (1 source) No Known Medication Allergies; Translations: [No Known Medication Allergies] Propensity to adverse reactions (disorder) [facility] Repository Medications Current Medications Medication Drug Class(es) Dates Sig (Normalized) Sig (Original) aspirin 81 mg delayed release oral tablet (1 source) Platelet Aggregation Inhibitor, Nonsteroidal Anti-inflammatory Drug Start: 08-25-2024 take 81 mg by mouth once daily Aspirin Active 81 MG PO Daily August 25, 2024 12:00am atorvastatin 80 mg oral tablet (1 source) HMG-CoA Reductase Inhibitor Start: 08-25-2024 take 80 mg by mouth once daily in the evening Atorvastatin Active 80 MG PO Every evening August 25, 2024 12:00am cetirizine hydrochloride 10 mg oral tablet (4 sources) Histamine-1 Receptor Antagonist Start: 03-30-2024 take 1 tablet by mouth once daily Cetirizine (24hour Allergy) 10 mg tablet Active 10 MG PO Daily March 29, 2024 11:00pm Start: 02-11-2024 Zyrtec Daily, Refills(s) 0 Start Date: 02/11/24 Status: Ordered Emergen-C (4 sources) Start: 03-30-2024 take 1 tablet by charli th once daily Emergen-C Active 1 TAB PO Daily March 29, 2024 11:00pm Start: 03-30-2024 take 1 tablet by charli th once daily Emergen-C Active 1 TAB PO Daily March 30, 2024 12:00am Start: 02-11-2024 Emergen-C Refi ll(s) 0 Start Date: 02/11/24 Status: Ordered lisinopril 2.5 mg oral tablet (1 source) Angiotensin Converting Enzyme Inhibitor Start: 08-25-2024 take 2.5 mg by mouth once daily Lisinopril Active 2.5 MG PO Daily August 25, 2024 12:00am metoprolol tartrate 25 mg oral tablet (1 source) beta-Adrenergic Gabriela Start: 08-25-2024 take 25 mg by mouth twice daily Metoprolol Tartrate Active 25 MG PO Twice daily August 25, 2024 12:00am minocycline 100 mg oral capsule (4 sources) Tetracycline-class Drug Start: 02-11-2024 take 100 mg by mouth once daily in the morning Minocycline Active 100 MG PO Every morning March 17, 2024 11:00pm Aleve (2 sources) Nonsteroidal Anti-inflammatory Drug Start: 02-11-2024 take 1 mg by mouth every twelve hours Aleve mg, Oral, q12hr, Refills(s) 0 Start Date: 02/11/24 Status: Ordered nitroglycerin 0.4 mg sublingual tablet (1 source) Nitrate Vasodilator Start: 08-25-2024 Nitroglycerin Active 0.4 MG SUBLINGUAL Q5M 25 August 25, 2024 12:00am Sod Picosulf-Mag Ox-Citric Ac (2 sources) Start: 01-29-2024 take 1 mL by mouth once daily Sod Picosulf-Mag Ox-Citric Ac (Clenpiq) 10 mg-3.5 gram- 12 gram/175 mL solution Active 175 ML PO Daily 10 21January 28, 2024 11:00pm please follow instructions provided by Dr. Linda's office. Start: 01-29-2024 take 1 mL by mouth once daily Sod Picosulf-Mag Ox-Citric Ac (Clenpiq) 10 mg-3.5 gram- 12 gram/175 mL solution Active 175 ML PO Daily 10 21January 29, 2024 12:00am please follow instructions provided by Dr. Linda's office. tamsulosin hydrochloride 0.4 mg oral capsule (4 sources) alpha-Adrenergic Gabriela Start: 02-11-2024 take 0.4 mg by mouth once daily Tamsulosin Active 0.4 MG PO Daily March 17, 2024 11:00pm ticagrelor 90 mg oral tablet (1 source) Start: 08-25-2024 take 1 tablet by mouth twice daily Ticagrelor (Brilinta) 90 mg Tablet Active 90 MG PO Twice daily 180 90 August 25, 2024 12:00am Problems Active Problems Problem Classification Problem Date Documented Da te Episodic/Chronic Acute myocardial infarction (3 sources) Myocardial infarction; Translations: [ST elevation (STEMI) myocardial infarction of unspecified site] Onset: 08-24-2024 08-24-2024 Chronic Hyperplasia of prostate (4 sources) Benign prostatic hypertrophy with outflow obstruction; Translations: [Benign prostatic hyperplasia with lower urinary tract symptoms] Onset: 02-11-2024 Chronic Other aftercare (1 source) Encounter for other specified aftercare; Translations: [Encounter for other specified aftercare] Onset: 10-30-2024 Episodic Urinary tract infections (1 source) Urinary tract infectious disease; Translations: [Urinary tract infection, site not specified] Episodic Past or Other Problems Problem Classification Problem Date Documented Da te Episodic/Chronic Other screening for suspected conditions (not mental disorders or infectious disease) (8 sources) Encounter for screening for malignant neoplasm of prostate; Translations: [Raised prostate specific antigen] Onset: 02-07-2022 Episodic Results Test Name Value Interpretation Reference Range Facility Automated basophil %Ordered By: Guilherme Joseph on 08-25-2024 Basophils/100 WBC (Bld) 0.5 % Normal . [facility] Comment on above: Performed By: #### C BC, BMP #### [address] Automated basophil countOrde red By: Guilherme Joseph on 08-25-2024 Basophils (Bld) [#/Vol] 0.1 10*3/uL Normal 0.0-0.2 [facility] Comment on above: Result Comment: PERF ORMED BY: [place] [address] PATHOLOGIST PAPER COATING SUPERVISOR LAYLA CAI M.D. Performed By: #### C BC, BMP #### [address] Automated blood monocyte cou ntOrdered By: Guilherme Joseph on 08-25-2024 Monocytes (Bld) [#/Vol] 0.9 10*3/uL High 0.0-0.8 [facility] Comment on above: Performed By: #### C BC, BMP #### [address] Automated eosinophil %Ordere d By: Guilherme Joseph on 08-25-2024 Eosinophils/100 WBC (Bld) 1.5 % Normal . [facility] Comment on above: Performed By: #### C BC, BMP #### [address] Automated eosinophil countOr dered By: Guilherme Joseph on 08-25-2024 Eosinophils (Bld) [#/Vol] 0.2 10*3/uL Normal 0.0-0.45 [facility] Comment on above: Performed By: #### C BC, BMP #### [address] Automated monocyte %Ordered By: Guilherme Joseph on 08-25-2024 Monocytes/100 WBC (Bld) 9.0 % Normal . [facility] Comment on above: Performed By: #### C BC, BMP #### [facility] [address] Automated neutrophil %Ordere d By: Guilherme Joseph on 08-25-2024 Neutrophils/100 WBC (Bld) 66.4 % Normal . [facility] Comment on above: Performed By: #### C BC, BMP #### [facility] [address] Basic Metabolic Panelon 11 Creatinine Clr Calc Pharmacy 103.07 Normal [facility] Comment on above: Result Comment: PERF ORMED BY: [place] [address] PATHOLOGIST PAPER COATING SUPERVISOR LAYLA CAI M.D. Performed By: #### C BC, BMP ####[address] GFR/1.73 sq M.predicted MDRD (S/P/Bld) [Vol rate/Area] mL/min/{1.73_m2} Normal [facility] Comment on above: Performed By: #### C BC, BMP ####[address] Calcium [Mass/volume] in Ser um or PlasmaOrdered By: Guilherme Joseph on 08-25-2024 Calcium [Mass/Vol] 9.1 mg/dL Normal 8.6-10.3 [facility] Comment on above: Performed By: #### C BC, BMP ####[address] Carbon dioxide, total [Moles /volume] in Serum or PlasmaOrdered By: Guilherme Joseph on 08-25-2024 CO2 [Moles/Vol] 26.0 mmol/L Normal 21.0-31.0 [facility] Comment on above: Performed By: #### C BC, BMP ####[address] [place] [address] [place] Chloride [Moles/volume] in S stephany or PlasmaOrdered By: Guilherme Joseph on 08-25-2024 Chloride [Moles/Vol] 104 mmol/L Normal 98-107 [facility] Comment on above: Performed By: #### C BC, BMP ####[facility] Complete Blood Count Auto Di ffon 08-25-2024 Mean Corpuscular HGB Conc 34.0 g/dL Normal 32.5-35.6 [facility] Comment on above: Performed By: #### C JAMES, BMP #### [facility] [address] NRBC% 0.0 /100{WBC} Normal 0-0.5 [facility] Comment on above: Performed By: #### C BC, BMP #### [facility] [address] Creatinine [Mass/volume] in Serum or PlasmaOrdered By: Guilherme Joseph on 08-25-2024 Creatinine [Mass/Vol] 0.94 mg/dL Normal 0.70-1.30 [facility] Comment on above: Performed By: #### C BC, BMP ####[facility] [place] [address] ECG 12 lead ECGon 08-25-2024 ECG 12 lead ECG [facility] Main [place] [address] [place] [address] Electrocardiograph Report Signed Patient: Isma Hwang MR#: [id number] 57 : 1965 Acct:[id number] Age/Sex: 59 / M ADM Date: 08/24/24 Loc: Room: [address] [place] [address] Type: ADM IN Attending Dr: Guilherme Joseph DO Ordering Provider: Guilherme Joseph DO Date of Service: 08/25/2403/13/500 ECG/ECG 12 lead ECG: Inferior STEMI Copies to: Test Reason : Blood Pressure : 124/86 mmHG Vent. Rate : 81 BPM Atrial Rate : 81 BPM P-R Int : 176 ms QRS Dur : 78 ms QT Int : 416 ms P-R-T Axes : 96 91 2 degrees QTcB Int : 483 ms Normal sinus rhythm Rightward axis Low voltage QRS Cannot rule out Inferior infarct , age undetermined Abnormal ECG When compared with ECG of 24-Aug-2024 07:26, QT has lengthened Confirmed by ERIN DIAZ [facility] [place] ([id number]) on 08/25/2024 2:23:22 PM Referred By: Electronically Signed By: KWAKU GARCES MD [facility] Transcribed By: MUS Signed By Kwaku Garces MD, [facility] 08/25/24 1423 Normal [facility] echo transthoracicon [facility] echo transthoracic [facility] Main [place] [address] [place] [address] Echocardiogram Signed Patient: Isma Hwang MR#: [id number] 57 : 1965 Acct:[id number] Age/Sex: 59 / M ADM Date: 08/24/24 Loc: Room: [address] [place] [address] Type: ADM IN Attending Dr: Guilherme Joseph DO Ordering Provider: Guilherme Joseph DO Date of Service: 08/25/2403/13/500 [facility] echo transthoracic: Inferior STEMI Copies to: Kwaku Garces MD, [facility] Guilherme Joseph DO BSA: 2.2 m2 BP: 122/83 mmHg HR: 66 Reason For Study: Inferior STEMI History: CAD Interpretation Summary Ejection Fraction = 55-60%. The left ventricular size, thickness and function are normal The left ventricular wall motion is normal. A variety of Doppler measurements indicate normal left ventricular diastolic function. There is no prior echocardiogram noted for this patient. Normal transthoracic echocardiogram. Procedure/Quality: A two-dimensional transthoracic echocardiogram with color flow and Doppler was performed. The study was technically good in quality. There is no prior echocardiogram noted for this patient. Left Ventricle: The left ventricular size, thickness and function are normal. Ejection Fraction = 55-60%. A variety of Doppler measurements indicate normal left ventricular diastolic function. The left ventricular wall motion is normal. Left Atrium: The left atrium appears normal in size. The atrial septum appears normal. Right Atrium: The right atrium appears normal in size. Right Ventricle: The right ventricular size, thickness and function are normal. Aortic Valve: The aortic valve is normal in structure and function. No aortic regurgitation is present. Mitral Valve: The mitral valve is normal in structure and function. There is no mitral regurgitation noted. Tricuspid Valve: The tricuspid valve is normal in structure and function. No tricuspid regurgitation. Pulmonic Valve: The pulmonic valve is normal in structure and function. Arteries: The aortic root is normal size. Pericardium/Pleura: No pericardial effusion seen. There is no pleural effusion. IVC/Hepatic Veins: The inferior vena cava is normal in size, with a normal collapsibility index. Miscellaneous: No thrombus, vegetation or mass is seen. Measurements with Normals IVSd: 1.3 cm (0.7-1.1 cm)LVIDd: 4.5 cm (3.7-5.4 cm) LVPWd: 1.1 cm (0.7-1.1 cm)LVIDs: 3.2 cm (2.3-3.6 cm) LA dimension: 3.1 cm (2.3-4.0 cm)Ao root diam: 3.7 cm(2.0-3.6 cm) asc Aorta Diam: 3.6 cm(2.1-3.4cm) Doppler with Normals RVSP(TR): 13.4 mmHg (18-35mmHg) LV V1 max: 97.7 cm/sec (0.7-1.7m/s)MV E max travis: 81.4 cm/sec(0.8-1.3m/s) MV A max travis: 55.3 cm/sec(0.0-0.0m/s) MV E/A: 1.5 (<1.5) MMode/2D Measurements Calculations RVDd: 3.2 cm FS: 28.0 % Ao root area: LVOT diam: 2.0 cm TAPSE: 2.7 cm EDV(Teich): 10.8 cm2 LVOT area: 3.3 cm2 RV S Travis: 91.7 ml 12.7 cm/sec ESV(Teich): 41.8 ml EF(Teich): 54.4 % __ LVLd ap4: 8.3 cm SV(MOD-sp4): LAV(MOD-sp4): LA A2 area: 16.3 cm2 EDV(MOD-sp4): 57.1 ml 34.0 ml 97.9 ml LAV(MOD-sp2): LA A4 area: 14.9 cm2 LVLs ap4: 7.2 cm 38.9 ml LA length (vol): ESV(MOD-sp4): 5.0 cm 40.8 ml LA vol: 41.1 ml EF(MOD-sp4): 58.3 % LA vol index: 18.7 ml/m2 Doppler Measurements Calculations MV dec time: MV max PG: E/E' lat: 8.8 MV dec slope: 0.20 sec 22.0 mmHg E/E' med: 13.6 405.6 cm/sec2 __ Ao V2 max: LV V1 max PG: MR max travis: TV max P.0 mmHg 112.7 cm/sec 3.8 mmHg 233.5 cm/sec Ao max P.1 mmHgLV V1 mean PG: MR max PG: Ao mean P.1 mmHg 22.3 mmHg 3.7 mmHg LV V1 mean: Ao V2 mean: 67.4 cm/sec 92.3 cm/sec LV V1 VTI: 21.9 cm Ao V2 VTI: 24.9 cm HORACIO(I,D): 2.9 cm2 HORACIO(V,D): 2.9 cm2 __ TR max travis: 161.5 cm/sec TR max P.4 mmHg RAP systole: 3.0 mmHg Transcribed By: KAURV Performed At: 08/25/24 1046 Signed By: Kwaku Garces MD, [facility] 08/25/24 1517 Normal [facility] Erythrocyte distribution wid th [Ratio] by Automated countOrdered By: Guilherme Joseph on 08-25-2024 Erythrocyte distribution width (RBC) [Ratio] 13.5 % Normal 12.0-14.8 [facility] Comment on above: Performed By: #### C BC, BMP #### [facility] [address] [place] [address] [place] Erythrocytes [#/volume] in B lood by Automated countOrdered By: Guilherme Joseph on 08-25-2024 RBC (Bld) [#/Vol] 4.95 10*6/uL Normal 3.90-5.60 [facility] Comment on above: Performed By: #### C JAMES, BMP #### [facility] [address] Glucose [Mass/volume] in Ser um or PlasmaOrdered By: Guilherme Joseph on 08-25-2024 Glucose [Mass/Vol] 101 mg/dL High 70-100 [facility] Comment on above: ADA recommended refe rence rangeRandom Glucose Reference Range is dependent on time and content of last meal. Glucose of more than 200 mg/dL in a nonstressed, ambulatory subject supports the diagnosis of Diabetes Mellitus. Result Comment: [place] [facility] Glucose Reference Range is dependent on time and content of last meal. Glucose of more than 200 mg/dL in a nonstressed, ambulatory subject supports the diagnosis of Diabetes Mellitus. ADA recommended reference range Performed By: #### C JAMES, BMP ####[facility] Hematocrit [Volume Fraction] of Blood by Automated countOrdered By: Guilherme Joseph on 08-25-2024 Hematocrit (Bld) [Volume fraction] 42.1 % Normal 38.8-50.0 [facility] Comment on above: Performed By: #### C JAMES, BMP #### [facility] [address] [place] [address] [place] Hemoglobin [Mass/volume] in BloodOrdered By: Guilherme Joseph on 08-25-2024 Hemoglobin (Bld) [Mass/Vol] 14.3 g/dL Normal 13.0-17.0 [facility] Comment on above: Performed By: #### C BC, BMP #### [facility] [address] [place] [id number] [place] Leukocytes [#/volume] correc winnie for nucleated erythrocytes in Blood by Automated counOrdered By: Guilherme Joseph on 08-25-2024 WBC corrected for nucl RBC Auto (Bld) [#/Vol] 10.4 10*3/uL 4.1-10.5 [facility] Leukocytes [#/volume] in Blo od by Automated countOrdered By: Guilherme Joseph on 08-25-2024 WBC (Bld) [#/Vol] 10.4 10*3/uL Normal 4.1-10.5 [facility] Comment on above: Performed By: #### C BC, BMP #### [address] Lymphocytes [#/volume] in Bl ood by Automated countOrdered By: Guilherme Joseph on 08-25-2024 Lymphocytes (Bld) [#/Vol] 2.3 10*3/uL Normal 1.00-4.8 [facility] Comment on above: Performed By: #### C BC, BMP #### [facility] [address] [place] [address] Lymphocytes/100 leukocytes i n Blood by Automated countOrdered By: Guilherme Joseph on 08-25-2024 Lymphocytes/100 WBC (Bld) 22.6 % Normal . [facility] Comment on above: Performed By: #### C BC, BMP #### [address] MCH [Entitic mass] by Automa winnie countOrdered By: Guilherme Joseph on 08-25-2024 MCH (RBC) [Entitic mass] 28.9 pg Normal 27.5-35.2 [facility] Comment on above: Performed By: #### C BC, BMP #### [address] MCHC Auto (RBC) [Mass/Vol]Or dered By: Guilherme Joseph on 08-25-2024 MCHC (RBC) [Mass/Vol] 34.0 g/dL 32.5-35.6 [facility] MCV [Entitic volume] by Auto mated countOrdered By: Guilherme Joseph on 08-25-2024 MCV (RBC) [Entitic vol] 85.0 fL Normal 83.5-101 [facility] Comment on above: Performed By: #### C BC, BMP #### [facility] [address] Neutrophils [#/volume] in Bl ood by Automated countOrdered By: Guilherme Joseph on 08-25-2024 Neutrophils (Bld) [#/Vol] 6.9 10*3/uL Normal 1.8-7.7 [facility] Comment on above: Performed By: #### C BC, BMP #### [facility] [address] No Panel InformationOrdered By: Guilherme Joseph on 08-25-2024 Estimated GFR (CKD-EPI) > 60.0 mL/Min [facility] Creatinine Clearance (Chem 103.07 [facility] Nucleated erythrocytes [Pres ence] in Blood by Automated countOrdered By: Guilherme Joseph on 08-25-2024 Nucleated RBC Auto Ql (Bld) 0.0 /100{WBC} 0-0.5 [facility] Platelet mean volume [Entiti c volume] in Blood by Automated countOrdered By: Guilherme Joseph on 08-25-2024 Platelet mean volume (Bld) [Entitic vol] 8.7 fL Normal 6.6-10.1 [facility] Comment on above: Performed By: #### C JAMES, BMP #### [facility] [address] Platelets [#/volume] in Bloo d by Automated countOrdered By: Guilherme Joseph on 08-25-2024 Platelets (Bld) [#/Vol] 198 10*3/uL Normal 150-450 [facility] Comment on above: Performed By: #### C BC, BMP #### [facility] [address] Potassium [Moles/volume] in Serum or PlasmaOrdered By: Guilherme Joseph on 08-25-2024 Potassium [Moles/Vol] 5.0 mmol/L Normal 3.5-5.1 [facility] Comment on above: Performed By: #### C BC, BMP ####[facility] [address] Serum or plasma anion gap de terminationOrdered By: Guilherme Joseph on 08-25-2024 Anion gap [Moles/Vol] 9.0 mmol/L Normal 6.0-15.0 [facility] Comment on above: Performed By: #### C BC, BMP ####[place] [id number] [facility] Sodium [Moles/volume] in Ser um or PlasmaOrdered By: Guilherme Joseph on 08-25-2024 Sodium [Moles/Vol] 134 mmol/L Low 136-145 [facility] Comment on above: Performed By: #### C BC, BMP ####[place] [id number] [facility] Urea nitrogen [Mass/volume] in Serum or PlasmaOrdered By: Guilherme Joseph on 08-25-2024 Urea nitrogen [Mass/Vol] 12 mg/dL Normal 7-25 [facility] Comment on above: Performed By: #### C BC, BMP ####[place] [id number] [facility] Basic Metabolic Panelon 11-0 Anion gap [Moles/Vol] 10.9 mmol/L Normal 6.0-15.0 [facility] Comment on above: Performed By: #### C BC, BMP ####[place] [id number] [facility] Calcium [Mass/Vol] 8.8 mg/dL Normal 8.6-10.3 [facility] Comment on above: Performed By: #### C BC, BMP ####[place] [id number] [facility] Chloride [Moles/Vol] 104 mmol/L Normal 98-107 [facility] Comment on above: Performed By: #### C BC, BMP ####[address] [address] [facility] CO2 [Moles/Vol] 27.0 mmol/L Normal 21.0-31.0 [facility] Comment on above: Performed By: #### C BC, BMP ####[address] Creatinine [Mass/Vol] 1.02 mg/dL Normal 0.70-1.30 [facility] Comment on above: Performed By: #### C BC, BMP ####[address] Creatinine Clr Calc Pharmacy 94.99 Normal [facility] Comment on above: Result Comment: PERF ORMED BY: [facility] [address] [place] [address] PATHOLOGIST PAPER COATING SUPERVISOR LAYLA CAI M.D. Performed By: #### C JAMES, BMP ####[address] GFR/1.73 sq M.predicted MDRD (S/P/Bld) [Vol rate/Area] mL/min/{1.73_m2} Normal [facility] Comment on above: Performed By: #### C JAMES, BMP ####[address] Glucose [Mass/Vol] 108 mg/dL High 70-100 [facility] Comment on above: Result Comment: [facility] Glucose Reference Range is dependent on time and content of last meal. Glucose of more than 200 mg/dL in a nonstressed, ambulatory subject supports the diagnosis of Diabetes Mellitus. ADA recommended reference range Performed By: #### C JAMES, BMP ####[address] Potassium [Moles/Vol] 4.9 mmol/L Significan t change down 3.5-5.1 [facility] Comment on above: Result Comment: Hemo lysis is present at a level that could interfere with the result.Contact lab if redraw is required Performed By: #### C BC, BMP ####[address] Sodium [Moles/Vol] 137 mmol/L Normal 136-145 [facility] Comment on above: Performed By: #### C BC, BMP ####[address] Urea nitrogen [Mass/Vol] 15 mg/dL Normal 7-25 [facility] Comment on above: Performed By: #### C JAMES, BMP ####[address] Complete Blood Count Auto Di ffon 08-24-2024 Basophils (Bld) [#/Vol] 0.1 10*3/uL Normal 0.0-0.2 [facility] Comment on above: Result Comment: PERF ORMED BY: [facility] [address] [place] [address] PATHOLOGIST PAPER COATING SUPERVISOR LAYLA CAI M.D. Performed By: #### C JAMES, BMP ####[address] Basophils/100 WBC (Bld) 0.7 % Normal . [facility] Comment on above: Performed By: #### C JAMES, BMP ####[address] Eosinophils (Bld) [#/Vol] 0.0 10*3/uL Normal 0.0-0.45 [facility] Comment on above: Performed By: #### C JAMES, BMP ####[address] Eosinophils/100 WBC (Bld) 0.2 % Normal . [facility] Comment on above: Performed By: #### C JAMES, BMP ####[address] Erythrocyte distribution width (RBC) [Ratio] 13.2 % Normal 12.0-14.8 [facility] Comment on above: Performed By: #### C JAMES, BMP ####[address] Hematocrit (Bld) [Volume fraction] 42.4 % Normal 38.8-50.0 [facility] Comment on above: Performed By: #### C BC, BMP ####[address] Hemoglobin (Bld) [Mass/Vol] 14.3 g/dL Normal 13.0-17.0 [facility] Comment on above: Performed By: #### C BC, BMP ####[address] Lymphocytes (Bld) [#/Vol] 1.6 10*3/uL Normal 1.00-4.8 [facility] Comment on above: Performed By: #### C BC, BMP ####[address] Lymphocytes/100 WBC (Bld) 15.6 % Normal . [facility] Comment on above: Performed By: #### C BC, BMP ####[address] MCH (RBC) [Entitic mass] 29.0 pg Normal 27.5-35.2 [facility] Comment on above: Performed By: #### C BC, BMP ####[address] MCV (RBC) [Entitic vol] 86.2 fL Normal 83.5-101 [facility] Comment on above: Performed By: #### C JAMES, BMP ####[address] Mean Corpuscular HGB Conc 33.6 g/dL Normal 32.5-35.6 [facility] Comment on above: Performed By: #### C BC, BMP ####[address] Monocytes (Bld) [#/Vol] 0.5 10*3/uL Normal 0.0-0.8 [facility] Comment on above: Performed By: #### C BC, BMP ####[address] Monocytes/100 WBC (Bld) 4.6 % Normal . [facility] Comment on above: Performed By: #### C BC, BMP ####[address] Neutrophils (Bld) [#/Vol] 8.3 10*3/uL High 1.8-7.7 [facility] Comment on above: Performed By: #### C JAMES, BMP ####[address] Neutrophils/100 WBC (Bld) 78.9 % Normal . [facility] Comment on above: Performed By: #### C BC, BMP ####[place] [id number] [facility] NRBC% 0.0 /100{WBC} Normal 0-0.5 [facility] Comment on above: Performed By: #### C JAMES, BMP ####[address] Platelet mean volume (Bld) [Entitic vol] 8.8 fL Normal 6.6-10.1 [facility] Comment on above: Performed By: #### C JAMES, BMP ####[address] Platelets (Bld) [#/Vol] 223 10*3/uL Normal 150-450 [facility] Comment on above: Performed By: #### C JAMES, BMP ####[address] RBC (Bld) [#/Vol] 4.92 10*6/uL Normal 3.90-5.60 [facility] Comment on above: Performed By: #### C JAMES, BMP ####[address] WBC (Bld) [#/Vol] 10.5 10*3/uL Normal 4.1-10.5 [facility] Comment on above: Performed By: #### C JAMES, BMP ####[place] [id number] [facility] ECG 12 lead ECGon 08-24-2024 ECG 12 lead ECG [facility] Main [place] [address] [place] [address] Electrocardiograph Report Signed Patient: Isma Hwang MR#: [id number] 57 : 1965 Acct:[id number] Age/Sex: 59 / M ADM Date: 08/24/24 Loc: Room: [address] [place] [address] Type: ADM IN Attending Dr: Guilherme Joseph DO Ordering Provider: Guilherme Joseph DO Date of Service: 08/24/2402/11/500 ECG/ECG 12 lead ECG: Inferior STEMI Copies to: Test Reason : Blood Pressure : 155/94 mmHG Vent. Rate : 68 BPM Atrial Rate : 68 BPM P-R Int : 182 ms QRS Dur : 84 ms QT Int : 406 ms P-R-T Axes : 68 -17 32 degrees QTcB Int : 431 ms Normal sinus rhythm Low voltage QRS Borderline ECG No previous ECGs available Confirmed by ERIN DIAZ FAC, KWAKU ([id number]) on 08/24/2024 11:39:15 AM Referred By: Electronically Signed By: KWAKU GARCES MD [facility] Transcribed By: MUS Signed By Kwaku Garces MD, FACC 08/24/24 1139 Normal [facility] Troponin I High Sensitivityo n 08-24-2024 Troponin I High Sensitivity 4665.3 pg/mL Off scale high 0.0-20.0 [facility] Comment on above: Result Comment: Crit ical Result : Called to and read back by: MELISSA MURO at: 08/24/2024 11:17:09 by:[email or web address] PERFORMED BY: [place] [phone] PATHOLOGIST PAPER COATING SUPERVISOR LAYLA CAI M.D. Performed By: #### H S TROP #### [address] Troponin I High Sensitivity 5722.1 pg/mL Off scale high 0.0-20.0 [facility] Comment on above: Order Comment: 0630 draw Result Comment: Crit ical Result : Called to and read back by: MELISSA ESPAÑA at: 08/24/2024 09:48:09 by:[id number] PERFORMED BY: [place] [address] PATHOLOGIST PAPER COATING SUPERVISOR LAYLA CAI M.D. Performed By: #### H S TROP ####[place] [id number] [place] [address] [facility] Troponin I High Sensitivity 5250.4 pg/mL Off scale high 0.0-20.0 [facility] Comment on above: Order Comment: 0630 draw Result Comment: Crit ical Result : Called to and read back by: PATRICIA at: 08/24/2024 07:44:41 by:[email or web address] PERFORMED BY: [place] [address] PATHOLOGIST PAPER COATING SUPERVISOR LAYLA CAI M.D. Performed By: #### H S TROP ####[address] [address] [facility] Troponin I High Sensitivity 2133.2 pg/mL Off scale high 0.0-20.0 [facility] Comment on above: Result Comment: Crit ical Result : Called to and read back by: SERA MOLINA at: 08/24/2024 05:18:49 by:[id number] PERFORMED BY: [place] [id number] PATHOLOGIST PAPER COATING SUPERVISOR LAYLA CAI M.D. Performed By: #### H S TROP ####[address] [address] [facility] Troponin I.cardiac [Mass/vol ume] in Serum or Plasma by Detection limit <= 0.01 ng/Ordered By: Guilherme Joseph on 08-24-2024 Troponin I.cardiac DL <= 0.01 ng/mL [Mass/Vol] 4665.3 pg/mL High 0.0-20.0 [facility] Comment on above: Critical Result : Ca lled to and read back by: MELISSA MURO at: 08/24/2024 11:17:09 by:[email or web address] XR chest 1V portableon 08-24 XR chest 1V portable [facility] Main [address] [address] XRay Report Signed Patient: Isma Hwang MR#: [id number] 57 : 1965 Acct:[id number] Age/Sex: 59 / M ADM Date: 08/24/24 Loc: Room: [address] [place] [address] Type: ADM IN Attending Dr: Guilherme Joseph DO Copies to: MD Guilherme Fuentes DO Ordering Provider: Josette Nova MD Date of Service: 08/23/24 XR/XR chest 1V portable: Chest Pain SINGLE VIEW CHEST CLINICAL HISTORY: Shortness of breath left arm tingling. Midsternal chest pain COMPARISON: None FINDINGS: Heart normal in size. No lung consolidation pneumothorax pleural effusion or free air. XR/XR chest 1V portable IMPRESSION: NO ACUTE FINDINGS Impression dictated by: Temo Barnes Jr., D.O.08/24/2024 9:38 AM Dictation Location: [place] [address] Transcribed By: BERNARDO 08/24/24937 Dictated By: Temo Barnes Jr, DO 08/24/2437 Signed By: 08/24/24937 Normal [facility] BNP ser/plasOrdered By: Ella Nova on 08-23-2024 Natriuretic peptide B (Bld) [Mass/Vol] 15.0 pg/mL Normal 5-100 [facility] Comment on above: Result Comment: PERF ORMED BY: [place] [address] PATHOLOGIST PAPER COATING SUPERVISOR LAYLA CAI M.D. Performed By: #### B MP, HS TROP, BNP, PT, CBC, CK #### [address] Basic Metabolic Panelon 11-0 Anion gap [Moles/Vol] 10.4 mmol/L Normal 6.0-15.0 [facility] Comment on above: Performed By: #### B MP, HS TROP, BNP, PT, CBC, CK #### [address] Calcium [Mass/Vol] 9.2 mg/dL Normal 8.6-10.3 [facility] Comment on above: Performed By: #### B MP, HS TROP, BNP, PT, CBC, CK #### [address] Chloride [Moles/Vol] 105 mmol/L Normal 98-107 [facility] Comment on above: Performed By: #### B MP, HS TROP, BNP, PT, CBC, CK #### [address] CO2 [Moles/Vol] 28.0 mmol/L Normal 21.0-31.0 [facility] Comment on above: Performed By: #### B MP, HS TROP, BNP, PT, CBC, CK #### [address] Creatinine [Mass/Vol] 1.23 mg/dL Normal 0.70-1.30 [facility] Comment on above: Performed By: #### B MP, HS TROP, BNP, PT, CBC, CK #### [address] Creatinine Clr Calc Pharmacy 82.46 Normal [facility] Comment on above: Result Comment: PERF ORMED BY: [place] [address] PATHOLOGIST PAPER COATING SUPERVISOR LAYLA CAI M.D. Performed By: #### B MP, HS TROP, BNP, PT, CBC, CK #### [address] GFR/1.73 sq M.predicted MDRD (S/P/Bld) [Vol rate/Area] mL/min/{1.73_m2} Normal [facility] Comment on above: Performed By: #### B MP, HS TROP, BNP, PT, CBC, CK #### [address] Glucose [Mass/Vol] 100 mg/dL Normal 70-100 [facility] Comment on above: Result Comment: [place] om Glucose Reference Range is dependent on time and content of last meal. Glucose of more than 200 mg/dL in a nonstressed, ambulatory subject supports the diagnosis of Diabetes Mellitus. ADA recommended reference range Performed By: #### B MP, HS TROP, BNP, PT, CBC, CK #### [address] Potassium [Moles/Vol] 3.4 mmol/L Low 3.5-5.1 [facility] Comment on above: Performed By: #### B MP, HS TROP, BNP, PT, CBC, CK #### [address] Sodium [Moles/Vol] 140 mmol/L Normal 136-145 [facility] Comment on above: Performed By: #### B MP, HS TROP, BNP, PT, CBC, CK #### [address] Urea nitrogen [Mass/Vol] 17 mg/dL Normal 7-25 [facility] Comment on above: Performed By: #### B MP, HS TROP, BNP, PT, CBC, CK #### [address] Complete Blood Count Auto Di ffon 08-23-2024 Basophils (Bld) [#/Vol] 0.1 10*3/uL Normal 0.0-0.2 [facility] Comment on above: Result Comment: PERF ORMED BY: [place] [address] PATHOLOGIST PAPER COATING SUPERVISOR LAYLA CAI M.D. Performed By: #### B MP, HS TROP, BNP, PT, CBC, CK #### [address] Basophils/100 WBC (Bld) 1.0 % Normal . [facility] Comment on above: Performed By: #### B MP, HS TROP, BNP, PT, CBC, CK #### [address] Eosinophils (Bld) [#/Vol] 0.2 10*3/uL Normal 0.0-0.45 [facility] Comment on above: Performed By: #### B MP, HS TROP, BNP, PT, CBC, CK #### [address] Eosinophils/100 WBC (Bld) 1.4 % Normal . [facility] Comment on above: Performed By: #### B MP, HS TROP, BNP, PT, CBC, CK #### [address] Erythrocyte distribution width (RBC) [Ratio] 13.4 % Normal 12.0-14.8 [facility] Comment on above: Performed By: #### B MP, HS TROP, BNP, PT, CBC, CK #### [address] Hematocrit (Bld) [Volume fraction] 42.5 % Normal 38.8-50.0 [facility] Comment on above: Performed By: #### B MP, HS TROP, BNP, PT, CBC, CK #### [address] Hemoglobin (Bld) [Mass/Vol] 14.5 g/dL Normal 13.0-17.0 [facility] Comment on above: Performed By: #### B MP, HS TROP, BNP, PT, CBC, CK #### [address] Lymphocytes (Bld) [#/Vol] 4.9 10*3/uL High 1.00-4.8 [facility] Comment on above: Performed By: #### B MP, HS TROP, BNP, PT, CBC, CK #### [address] Lymphocytes/100 WBC (Bld) 37.3 % Normal . [facility] Comment on above: Performed By: #### B MP, HS TROP, BNP, PT, CBC, CK #### [address] MCH (RBC) [Entitic mass] 28.7 pg Normal 27.5-35.2 [facility] Comment on above: Performed By: #### B MP, HS TROP, BNP, PT, CBC, CK #### [address] MCV (RBC) [Entitic vol] 84.0 fL Normal 83.5-101 [facility] Comment on above: Performed By: #### B MP, HS TROP, BNP, PT, CBC, CK #### [address] Mean Corpuscular HGB Conc 34.1 g/dL Normal 32.5-35.6 [facility] Comment on above: Performed By: #### B MP, HS TROP, BNP, PT, CBC, CK #### [address] Monocytes (Bld) [#/Vol] 1.2 10*3/uL High 0.0-0.8 [facility] Comment on above: Performed By: #### B MP, HS TROP, BNP, PT, CBC, CK #### [address] Monocytes/100 WBC (Bld) 19.50 % Normal 0.00-20.00 [facility] Comment on above: Performed By: #### B MP, HS TROP, BNP, PT, CBC, CK #### [address] Monocytes/100 WBC (Bld) 8.7 % Normal . [facility] Comment on above: Performed By: #### B MP, HS TROP, BNP, PT, CBC, CK #### [address] Neutrophils (Bld) [#/Vol] 6.8 10*3/uL Normal 1.8-7.7 [facility] Comment on above: Performed By: #### B MP, HS TROP, BNP, PT, CBC, CK #### [place] [address] [place] Neutrophils/100 WBC (Bld) 51.6 % Normal . [facility] Comment on above: Performed By: #### B MP, HS TROP, BNP, PT, CBC, CK #### [address] NRBC% 0.1 /100{WBC} Normal 0-0.5 [facility] Comment on above: Performed By: #### B MP, HS TROP, BNP, PT, CBC, CK #### [address] Platelet mean volume (Bld) [Entitic vol] 8.9 fL Normal 6.6-10.1 [facility] Comment on above: Performed By: #### B MP, HS TROP, BNP, PT, CBC, CK #### [address] Platelets (Bld) [#/Vol] 275 10*3/uL Normal 150-450 [facility] Comment on above: Performed By: #### B MP, HS TROP, BNP, PT, CBC, CK #### [address] RBC (Bld) [#/Vol] 5.06 10*6/uL Normal 3.90-5.60 [facility] Comment on above: Performed By: #### B MP, HS TROP, BNP, PT, CBC, CK #### [address] WBC (Bld) [#/Vol] 13.3 10*3/uL High 4.1-10.5 [facility] Comment on above: Performed By: #### B MP, HS TROP, BNP, PT, CBC, CK #### [address] Creatine kinase [Enzymatic a ctivity/volume] in Serum or PlasmaOrdered By: Josette Nova on 08-23-2024 CK [Catalytic activity/Vol] 50 U/L Normal 30-223 [facility] Comment on above: Performed By: #### B MP, HS TROP, BNP, PT, CBC, CK #### [address] ECG 12 lead ECGon 08-23-2024 ECG 12 lead ECG [facility] Main [place] [address] [place] [address] Electrocardiograph Report Signed Patient: Isma Hwang MR#: [id number] 57 : 1965 Acct:[id number] Age/Sex: 59 / M ADM Date: 08/24/24 Loc: Room: [address] [place] [address] Type: ADM IN Attending Dr: Guilherme Joseph DO Ordering Provider: Josette Nova MD Date of Service: 08/23/2401/11/2359 ECG/ECG 12 lead ECG: Chest Pain Copies to: Test Reason : Blood Pressure : */* mmHG Vent. Rate : 65 BPM Atrial Rate : 65 BPM P-R Int : 180 ms QRS Dur : 84 ms QT Int : 386 ms P-R-T Axes : 72 49 81 degrees QTcB Int : 401 ms Normal sinus rhythm with sinus arrhythmia ST elevation, consider inferior injury or acute infarct ACUTE [place] / STEMI Abnormal ECG No previous ECGs available Reconfirmed by Josette Nova MD ([id number]), graphic editor Cesar Terrazas ([id number]) on 08/24/2024 10:19:57 AM Referred By: Electronically Signed By: Josette Nova MD Transcribed By: MUS Signed By Josette Nova MD 02/11 1020 Normal [facility] INR in Platelet poor plasma by Coagulation assayOrdered By: Josette Nova on 08-23-2024 INR Coag (PPP) [Relative time] 0.9 {INR} Normal [facility] Comment on above: INR Therapeutic Rang e A) Pre- and Peroperative OAT started two weeks before surgery. NOT HIP SURGERY: 1.5 - 2.5 HIP SURGERY: 2 - 3B) Primary and secondary prevention of venous THROMBOSIS: 2 - 3C) Active venous thrombosis, pulmonary embolismand prevention of recurrent venous thrombosis: 2 - 3D) Prevention of arterial thromboembolismincluding patients with mechanical heart valves: 3 - 4.5 Result Comment: INR Therapeutic Range A) Pre- and Peroperative OAT started two weeks before surgery. NOT HIP SURGERY: 1.5 - 2.5 HIP SURGERY: 2 - 3 B) Primary and secondary prevention of venous THROMBOSIS: 2 - 3 C) Active venous thrombosis, pulmonary embolism and prevention of recurrent venous thrombosis: 2 - 3 D) Prevention of arterial thromboembolism including patients with mechanical heart valves: 3 - 4.5 PERFORMED BY: [address] [address] PATHOLOGIST PAPER COATING SUPERVISOR LAYLA CAI M.D. Performed By: #### B MP, HS TROP, BNP, PT, CBC, CK #### [facility] [address] [place] [id number] [facility] Monocyte distribution width [Entitic volume] in Blood by AutomatedOrdered By: Josette Nova on 08-23-2024 Monocyte distribution width Auto (Bld) [Entitic vol] 19.50 % 0.00-20.00 [facility] Prothrombin time (PT)Ordered By: Josette Nova on 08-23-2024 PT Coag (PPP) [Time] 10.7 s Normal 9.0-12.9 [facility] Comment on above: A hematocrit value g reater than 55% may lead to inaccurate results in coagulation testing. Patients having hematocrit values >55% require a special collection tube for coagulation studies. Please contact the laboratory at [phone] for redraw instructions. Result Comment: A he matocrit value greater than 55% may lead to inaccurate results in coagulation testing. Patients having hematocrit values >55% require a special collection tube for coagulation studies. Please contact the laboratory at [phone] for redraw instructions. Performed By: #### B MP, HS TROP, BNP, PT, CBC, CK #### [facility] [address] [place] [id number] [facility] Troponin I High Sensitivityo n 08-23-2024 Troponin I High Sensitivity 4.6 pg/mL Normal 0.0-20.0 [facility] Comment on above: Result Comment: PERF ORMED BY: [place] [address] PATHOLOGIST PAPER COATING SUPERVISOR LAYLA CAI M.D. Performed By: #### B MP, HS TROP, BNP, PT, CBC, CK #### [facility] [address] [place] [id number] [facility] Ambulatory Visit Summaryon 0 04-13-2024 Ambulatory Visit Summary ISMA HWANG :1965 Visit Date:04/13/2024 Ambulatory Visit Instructions Your Diagnosis Elevated PSA BPH with urinary obstruction Your Care Team Attending Physician - LEO DIAZ, Jeff Sanchez Primary Care Physician - Andrea Torres MD This Is Your Medications List Contact prescribing physician if questions or concerns cetirizine (Zyrtec) minocycline (minocycline 100 mg Cap) multivitamin with minerals (Emergen-C) naproxen (Aleve) tamsulosin (tamsulosin 0.4 mg Cap) Discharge Vitals Temperature (Temporal Artery) 37 ?C Heart Rate (Peripheral) 71 Respiratory Rate 16 Blood Pressure 125/82 Height 180 cm Height 71 in Weight 104 kg Weight 228.8 lb BMI 32.1 What to do next Scheduled Follow-Up Appointments Saturday 9:45 AM EST With: Jeff BAILEY MD Where: [facility] Kari [facility] Patient Educationon 04-13-20 Patient Education Oncology Prostate Cancer Screening Prostate [...] Where to find more information ? The [employer]: www.cancer.org ? [employer]: www.auanet.org Contact a health care [...] adds flu (more content not included)... Normal [facility] Urology Office/Clinic Noteon 04-13-2024 Urology Office/Clinic Note Chief Complaint Pt is here for 2 month w/ PSA HPI Staff 3 month follow up w/PSA Previous DX: abnormal PSA, BPH w/urinary obstruction, elevated PSA *Flomax 0.4mg qd PSA: 12/10/18 - 2.45 12/11/19 - 2.49 02/01/22 - 2.56 01/06/24 - 4.09 01/08/24 - 3.3 & 19.1% 04/06/24 - 2.8 & 18.2% Dysuria: denies Incomplete bladder emptying: denies Hematuria: denies Frequency: every 2 hours Urgency: denies Nocturia: denies Stream: steady stream Leaking: denies Post void dripping: mild Wearing pads/ Depends: denies Urge incontinence: denies Stress incontinence: denies Incontinence without Sensory Awareness: denies Abdominal pain: denies Flank pain: denies Sexual complaints: _ History of Present Illness Tests reviewed: reviewed UA, PSA I have reviewed the previous health record information and history for this patient from Dr. Bailey. I have reviewed and verified the staff [...] HPI. Physical Exam Vitals & Measurements T: 37 ?C(Temporal Artery) HR: 71(Peripheral) RR: 16 BP: 125/82 HT: 71 in HT: 180 cm WT: 104 kg WT: 228.8 lb BMI: 32.1 General Appearance: alert, no distress, well nourished, well developed male. Genitourinary: normal scrotum, normal testes, normal urethra, normal epididymis, normal vas deferens/spermatic cord. Flank Pain: none. Bladder: nonpalpable. Assessment/Plan 1. Elevated PSA (R97.20: Elevated prostate specific antigen [PSA]) PSA: 12/10/18 - 2.45 12/11/19 - 2.49 02/01/22 - 2.56 01/06/24 - 4.09 01/08/24 - 3.3 & 19.1% had a SANDY prior to one of his latest PSA levels. [1] 04/06/24 - 2.8 & 18.2% PSA decreased from prior. Will cont to monitor. Pt inquired as to what could have caused PSA increase. Educated pt that there could be low grade clinically insignificant prostatitis present that is causing PSA elevation/fluctuation. If PSA decreases or remains stable at next visit, will extend to a one year check. Follow up 6 mos with PSA F&T or sooner if needed. Pt understands and agrees with plan. 2. BPH with urinary obstruction (N40.1: Benign prostatic hyperplasia with lower urinary tract symptoms) No sample provided for UA today. Taking Flomax 0.4 mg qd. PCP refilling this. The patient is happy to hear that the PSA level is again decreased. He has a hwiicv-mz-sud-road percent free. The overall trend is down and I favor 6-month follow-up at this point. He agrees with the plan. Follow-up With When Contact Information LEO DIAZ, Jeff P, URL [address] [place] [phone]- Additional Instructions: 6 mos with PSA F&T Patient Education Prostate Cancer Screening I, Veronica Yin, personally scribed for Dr. Bailey on 04/13/2024 10:37:33. . Documentation recorded by the scribe, Veronica Yin, accurately reflects the services(s) I performed and decisions made by me. Authenticated by Dr. Bailey on 04/13/2024 10:39:12. Portions of this record may have been created with voice recognition artificial intelligence software, specifically [employer], [employer] and or [employer]. Substitutions may have occurred due to the inherent limitations of voice recognition and artificial intelligence software. Problem List/Past Medical History Ongoing Abnormal PSA BPH with urinary obstruction Elevated PSA Historical No qualifying data Medications Aleve, Oral, q12hr Emergen-C minocycline 100 mg Cap tamsulosin 0.4 mg Cap Zyrtec, Daily Allergies No Known Medication Allergies Social History Tobacco Never (less than 100 in lifetime) Tobacco Use:. Never Smokeless Tobacco Use:., 04/13/2024 Family History Diabetes: Mother. Heart disease: Mother and Father. Hodgkin's disease: Mother. Immunizations Vaccine Date Status zoster vaccine, inactivated 10/06/2023 Recorded zoster vaccine, inactivated 07/10/2023 Recorded influenza, unspecified formulation 08/11/2021 Recorded SARS-CoV-2 (COVID-19) mRNA BNT-162b2 vax 02/09/2021 Recorded SARS-CoV-2 (COVID-19) mRNA BNT-162b2 vax 01/20/2021 Recorded influenza, unspecified formulation 09/17/2019 Recorded Normal [facility] Comment on above: Result Comment: Elec tronically Signed By: Jeff BAILEY MD\.br\Date and Time Signed: 04/13/24 10:40 EDT\.br\Electronically Co-Signed By: Veronica Yin\.br\Date and Time Co-Signed: 04/13/24 10:37 EDT Lab Reportson 04-09-2024 Lab Reports [id number]#1.00TIFF Normal [facility] Formson 02-12-2024 Forms [id number]#1.00TIFF Normal [facility] Physician Referralon 024 Physician Referral [id number] Normal [facility] Screenson 02-12-2024 Screens [id number]#1.00TIFF Normal [facility] Patient Educationon 02-11-20 24 Patient Education Oncology Prostate Cancer Screening Prostate [...] Where to find more information ? The [employer]: www.cancer.org ? [employer]: www.auanet.org Contact a health care [...] flu (more content not included)... 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 Referral per Andrea Torres MD due to abnormal PSA PSA: 4.09 01/06/24 3.3 & 19.1% 01/08/24 Could not give a urine sample yet today Melissa put him on Tamsulosin for Nocturia- started [...] with voice recognition artificial intelligence software, specifically [employer], [employer] and or [employer]. Substitutions may have occurred due to the [...] blood draw. He knows not to have intercourse/ejaculation prior to the PSA level. He understands that this may increase the PSA slightly. He agrees with the plan and also understands that the workup for prostate cancer would involve an MRI of the prostate which could lead to a fusion biopsy. Follow-up With When Contact Information Jeff BAILEY MD, URL [address] [place] [address]- Additional Instructions: 3 mos w/ PSA FT Patient Education Prostate Cancer Screening I, Rosa Elena Temple, personally scribed for Dr. Bailey on 02/11/2024 09:29:03. . Documentati (more content not included)... Normal [facility] Comment on above: Result Comment: Elec tronically Signed By: Jeff BAILEY MD\.br\Date and Time Signed: 02/11/24 09:31 EDT\.br\Electronically Co-Signed By: Rosa Elena Temple\.br\Date and Time Co-Signed: 02/11/24 09:29 EDT CBC AUTO DIFFon 02-01-2022 BASO # 0.1 103/ul Normal 0.0-0.1 [facility] Comment on above: Performed By: #### C BC #### [facility] [address] [address] [address] Monster Cobian Basophils/100 WBC (Bld) 0.8 % Normal 0.2-2.0 [facility] Comment on above: Performed By: #### C BC #### [facility] [address] [place] [address] Dr. Monster Cobian EO # 0.1 103/ul Normal 0.0-0.7 [facility] Comment on above: Performed By: #### C BC #### [facility] [address] [place] [address] Dr. Monster Cobian Eosinophils/100 WBC (Bld) 1.6 % Normal 0.9-7.0 [facility] Comment on above: Performed By: #### C BC #### [facility] [address] [place] [address] Dr. Monster Cobian Erythrocyte distribution width (RBC) [Ratio] 12.4 % Normal 11.0-15.0 [facility] Comment on above: Performed By: #### C BC #### [facility] [address] [place] [address] Dr. Monster Cobian Hematocrit (Bld) [Volume fraction] 44.1 % Normal 42.0-54.0 [facility] Comment on above: Performed By: #### C BC #### [facility] [address] [place] [address] Dr. Monster Cobian Hemoglobin (Bld) [Mass/Vol] 14.9 g/dL Normal 14.0-18.0 [facility] Comment on above: Performed By: #### C BC #### [facility] [address] [place] [address] Dr. Monster Cobian IG # 0.02 10e3/ul Normal 0.00-0.03 [facility] Comment on above: Performed By: #### C BC #### [facility] [address] [place] [address] Dr. Monster Cobian IG % 0.3 % Normal 0.0-0.5 [facility] Comment on above: Performed By: #### C BC #### [facility] [address] [place] [address] Dr. Monster Cobian LYMPH # 2.0 103/ul Normal 1.2-3.8 [facility] Comment on above: Performed By: #### C BC #### [facility] [address] [place] [address] Dr. Monster Cobian Lymphocytes/100 WBC (Bld) 26.2 % Normal 20.5-60.0 [facility] Comment on above: Performed By: #### C BC #### [facility] [address] [place] [address] Dr. Monster Cobian MANUAL DIFF REQ NO Normal [facility] Comment on above: Performed By: #### C BC #### [facility] [address] [place] [address] Dr. Monster Cobian MCH (RBC) [Entitic mass] 29.0 pg Normal 25.9-34.0 [facility] Comment on above: Performed By: #### C BC #### [facility] [address] [place] [address] Dr. Monster Cobian MCHC (RBC) [Mass/Vol] 33.8 g/dL Normal 29.9-35.2 [facility] Comment on above: Performed By: #### C BC #### [facility] [address] [place] [address] Dr. Monster Cobian MCV (RBC) [Entitic vol] 85.8 fL Normal 80.0-94.0 [facility] Comment on above: Performed By: #### C BC #### [facility] [address] [place] [address] Dr. Monster Cobian MONO # 0.6 103/ul Normal 0.3-0.8 [facility] Comment on above: Performed By: #### C BC #### [facility] [address] [place] [address] Dr. Monster Cobian Monocytes/100 WBC (Bld) 7.9 % Normal 1.7-12.0 [facility] Comment on above: Performed By: #### C BC #### [facility] [address] [place] [address] Dr. Monster Cobian NEUT # 4.9 103/ul Normal 1.4-6.5 [facility] Comment on above: Performed By: #### C BC #### [facility] [address] [place] [address] Dr. Monster Cobian Neutrophils/100 WBC (Bld) 63.2 % Normal 43.0-75.0 [facility] Comment on above: Performed By: #### C BC #### [facility] [address] [place] [address] Dr. Monster Cobian Platelet mean volume (Bld) [Entitic vol] 9.7 fL Normal 9.5-13.5 [facility] Comment on above: Performed By: #### C BC #### [facility] [address] [place] [address] Dr. Monster Cobian PLT 251 103/ul Normal 150-450 [facility] Comment on above: Performed By: #### C BC #### [facility] [address] [place] [address] Dr. Monster Cobian RBC 5.14 106/ul Normal 4.70-6.10 [facility] Comment on above: Performed By: #### C BC #### [facility] [address] [place] [address] Dr. Monster Cobian WBC 7.7 103/ul Normal 4.0-11.0 [facility] Comment on above: Performed By: #### C BC #### [facility] [address] [place] [address] Dr. Monster Cobian GLYCOHEMOGLOBIN A1Con 2021 ADA RECOMMENDATION ADA THERAPEUTIC TARG ET 6.0 - 7.0 ACTION SUGGESTED > 7.0 Normal [facility] Comment on above: Performed By: #### A 1C #### [facility] [address] [place] [address] Dr. Monster Cobian Glucose [Mass/Vol] 114 mg/dL Normal [facility] Comment on above: Performed By: #### A 1C #### [facility] [address] [place] [address] Dr. Monster Cobian HbA1c (Bld) [Mass fraction] 5.6 % Normal <=6.0 [facility] Comment on above: Performed By: #### A 1C #### [facility] [address] [place] [address] Dr. Monster Cobian LIPID PROFILEon 02-01-2022 CHOL-HDL RATIO NORM SEE BELOW Normal [facility] Comment on above: Result Comment: 3.3 - 4.4 LOW RISK 4.4 - 7.1 AVERAGE RISK 7.1 - 11.0 MODERATE RISK >11.0 HIGH RISK Performed By: #### C MP, LIPID #### [facility] [address] [address] [address] Monster Cobian Cholesterol [Mass/Vol] 210 mg/dL Critically high <=200 [facility] Comment on above: Performed By: #### C MP, LIPID #### [facility] [address] [address] [address] Monster Cobian Cholesterol in HDL [Mass/Vol] 48 mg/dL Normal 40-60 [facility] Comment on above: Performed By: #### C MP, LIPID #### [facility] [address] [address] [address] Monster Cobian Cholesterol in LDL [Mass/Vol] 140.6 mg/dL Normal [facility] Comment on above: Performed By: #### C MP, LIPID #### [facility] [address] [address] [address] Monster Cobian Cholesterol.total/Chol esterol in HDL [Mass ratio] 4.4 {ratio} Normal [facility] Comment on above: Performed By: #### C MP, LIPID #### [facility] [address] [address] [address] Monster Cobian HDL NORMAL > or = 60 mg/dl - LO W CARDIOVASCULAR RISK <40 mg/dl - HIGH CARDIOVASCULAR RISK Normal [facility] Comment on above: Performed By: #### C MP, LIPID #### [facility] [address] [address] [address] Monster Cobian LDL CALC NORMAL SEE BELOW Normal [facility] Comment on above: Result Comment: <100 mg/dl OPTIMAL 100 - 129 mg/dl NEAR OR ABOVE OPTIMAL 130 - 159 mg/dl BORDERLINE HIGH 160 - 189 mg/dl HIGH >190 mg/dl VERY HIGH Performed By: #### C MP, LIPID #### [facility] [address] [address] [address] Monster Cobian Triglyceride [Mass/Vol] 107 mg/dL Normal <=150 [facility] Comment on above: Performed By: #### C MP, LIPID #### [facility] [address] [place] [address] Dr. Monster Cobian VLDL CALC 21.4 mg/dL Normal [facility] Comment on above: Performed By: #### C MP, LIPID #### [facility] [address] [place] [address] Dr. Monster Cobian PROF 14(COMP METB)on 022 Albumin [Mass/Vol] 3.9 g/dL Normal 3.4-5.0 [facility] Comment on above: Performed By: #### C MP, LIPID #### [facility] [address] [place] [address] Dr. Monster Cobian Albumin/Globulin [Mass ratio] 1.1 {ratio} Normal [facility] Comment on above: Performed By: #### C MP, LIPID #### [facility] [address] [place] [address] Dr. Monster Cobian ALP [Catalytic activity/Vol] 69 U/L Normal 46-116 [facility] Comment on above: Performed By: #### C MP, LIPID #### [facility] [address] [place] [address] Dr. Monster Cobian ALT [Catalytic activity/Vol] 23 U/L Normal 16-63 [facility] Comment on above: Performed By: #### C MP, LIPID #### [facility] [address] [place] [address] Dr. Monster Cobian Anion gap [Moles/Vol] 10.2 mmol/L Normal [facility] Comment on above: Performed By: #### C MP, LIPID #### [facility] [address] [place] [address] Dr. Monster Cobian AST [Catalytic activity/Vol] 13 U/L Critically low 15-37 [facility] Comment on above: Performed By: #### C MP, LIPID #### [facility] [address] [place] [address] Dr. Monster Cobian Bilirubin [Mass/Vol] 0.6 mg/dL Normal 0.2-1.3 [facility] Comment on above: Performed By: #### C MP, LIPID #### [facility] [address] [place] [address] Dr. Monster Cobian Calcium [Mass/Vol] 9.0 mg/dL Normal 8.5-10.1 [facility] Comment on above: Performed By: #### C MP, LIPID #### [facility] [address] [place] [address] Dr. Monster Cobian Chloride [Moles/Vol] 104 mmol/L Normal 98-107 [facility] Comment on above: Performed By: #### C MP, LIPID #### [facility] [address] [place] [address] Dr. Monster Cobian CO2 [Moles/Vol] 28.6 mmol/L Normal 22.0-30.0 [facility] Comment on above: Performed By: #### C MP, LIPID #### [facility] [address] [place] [address] Dr. Monster Cobian Creatinine [Mass/Vol] 0.96 mg/dL Normal 0.66-1.25 [facility] Comment on above: Performed By: #### C MP, LIPID #### [facility] [address] [place] [address] Dr. Monster Cobian EGFR-AF VINCENTIAN >60 Normal >=60 [facility] Comment on above: Performed By: #### C MP, LIPID #### [facility] [address] [place] [address] Dr. Monster Cobian EGFR-NON AF VINCENTIAN >60 Normal >=60 [facility] Comment on above: Performed By: #### C MP, LIPID #### [facility] [address] [place] [address] Dr. Monster Cobian Globulin (S) [Mass/Vol] 3.5 g/dL Normal [facility] Comment on above: Performed By: #### C MP, LIPID #### [facility] [address] [place] [address] Dr. Monster Cobian Glucose [Mass/Vol] 97 mg/dL Normal 74-106 [facility] Comment on above: Performed By: #### C MP, LIPID #### [facility] [address] [place] [address] Dr. Monster Cobian Potassium [Moles/Vol] 4.8 mmol/L Normal 3.4-5.0 [facility] Comment on above: Performed By: #### C MP, LIPID #### [facility] [address] [place] [address] Dr. Monster Cobian Protein [Mass/Vol] 7.4 g/dL Normal 6.1-8.2 [facility] Comment on above: Performed By: #### C MP, LIPID #### [facility] [address] [place] [address] Dr. Monster Cobian Sodium [Moles/Vol] 138 mmol/L Normal 137-145 [facility] Comment on above: Performed By: #### C MP, LIPID #### [facility] [address] [place] [address] Dr. Monster Cobian Urea nitrogen [Mass/Vol] 17.0 mg/dL Normal 7.0-18.0 [facility] Comment on above: Performed By: #### C MP, LIPID #### [facility] [address] [place] [address] Dr. Monster Cobian Urea nitrogen/Creatinine [Mass ratio] 17.7 mg/mg Normal [facility] Comment on above: Performed By: #### C MP, LIPID #### [facility] [address] [place] [address] Dr. Monster Cobian Vital Signs Date Time Vital Sign Value Performing Clinician Faci lity 08-25-2024 12:00-0500 Body temperature 97.8 [degF] MD Josette Nova Work Phone: [facility] 08-25-2024 12:00-0500 Diastolic blood pressure 81 mm[Hg] MD Josette Nova Work Phone: [facility] 08-25-2024 12:00-0500 Heart rate 71 /min MD Josette Nova Work Phone: [facility] 08-25-2024 12:00-0500 Respiratory rate 24 /min MD Josette Nova Work Phone: [facility] 08-25-2024 12:00-0500 SaO2% (BldA) [Mass fraction] 97 % MD Josette Nova Work Phone: [facility] 08-25-2024 12:00-0500 Systolic blood pressure 122 mm[Hg] MD Josette Nova Work Phone: [facility] 08-25-2024 06:00-0500 Body weight 104 kg MD Josette Nova Work Phone: [facility] 08-24-2024 01:35-0500 Body height 177.8 cm MD Josette Nova Work Phone: [facility] 04-13-2024 09:40-0400 Body temperature 98.6 [degF] Jeff BAILEY [facility] 04-13-2024 09:40-0400 Diastolic blood pressure 82 mm[Hg] Jeff LEO [facility] 04-13-2024 09:40-0400 Heart rate 71 /min Jeff BAILEY [facility] 04-13-2024 09:40-0400 Respiratory rate 16 /min Jeff COOK [facility] 04-13-2024 09:40-0400 Systolic blood pressure 125 mm[Hg] Jeff COOK [facility] 03-30-2024 09:19-0400 Diastolic blood pressure 90 mm[Hg] MD Andrea Torres Work Phone: [facility] 03-30-2024 09:19-0400 Heart rate 65 /min MD Andrea Torres Work Phone: [facility] 03-30-2024 09:19-0400 Respiratory rate 18 /min MD Andrea Torres Work Phone: [facility] 03-30-2024 09:19-0400 SaO2% (BldA) [Mass fraction] 99 % MD Andrea Torres Work Phone: [facility] 03-30-2024 09:19-0400 Systolic blood pressure 126 mm[Hg] MD Andrea Torres Work Phone: [facility] 03-30-2024 08:12-0400 Body height 177.8 cm MD Andrea Torres Work Phone: [facility] 03-30-2024 08:12-0400 Body weight 99.79 kg MD Andrea Torres Work Phone: [facility] 02-11-2024 09:02-0400 Blood Pressure Location Jeff BAILEY [facility] 02-11-2024 09:02-0400 Body temperature 98.6 [degF] Jeff LEO [facility] 02-11-2024 09:02-0400 Diastolic blood pressure 84 mm[Hg] Jeff BAILEY [facility] 02-11-2024 09:02-0400 Heart rate 84 /min Jefflorna BAILEY [facility] 02-11-2024 09:02-0400 Systolic blood pressure 136 mm[Hg] Jeff BAILEY [facility] Encounters Encounter Date Encounter Type Care Provider Facility Start: 11-09-2024 ambulatory Jeff BAILEY Facility :[facility] Start: 10-30-2024 ambulatory Andrea Torres Facility: [facility] Start: 08-24-2024 Non-patient / Non-visit MD Josette Nova Work Phone: [facility] Work Phone: Start: 08-24-2024 End: 08-25-2024 Evaluation and management of inpatient MD Josette Nova Work Phone: [facility] Work Phone: Start: 04-13-2024 End: 04-13-2024 ambulatory Jeff BAILEY Facility:[facility] Start: 04-13-2024 End: 04-13-2024 Patient encounter procedure Jeff BAILEY [facility] Start: 03-30-2024 Non-patient / Non-visit MD Andrea Torres Work Phone: [facility] Work Phone: Start: 03-30-2024 End: 03-30-2024 Admission to same day surgery center MD Andrea Torres Work Phone: [facility] Work Phone: Start: 03-30-2024 End: 03-30-2024 ambulatory MD Andrea Torres Work Phone: [facility] Work Phone: Start: 02-11-2024 End: 02-11-2024 ambulatory Jeff BAILEY Facility:[facility] Start: 02-11-2024 End: 02-11-2024 Patient encounter procedure Jeff BAILEY [facility] Start: 01-09-2024 ambulatory Jeff BAILEY Facility:[facility] Start: 05-04-2022 Orders Only Jonathan Schroeder MD Work Phone: Urology Comment on above: Urinary tract infect ion with hematuria, site unspecified (Primary Dx) Start: 02-07-2022 Encounter for genera l adult medical examination without abnormal findings DR ANDREA TORRES [facility] Start: 02-01-2022 End: 02-02-[address] ANDREA TORRES Facility:[facility] Start: 02-01-2022 End: 02-02-2022 Encounter for general adult medical examination without abnormal findings DR ANDREA TORRES Facility:[facility] Start: 02-09-2021 End: 02-10-2021 ambulatory NONE LISTED REQUEST Facility:[facility] Procedures Date Procedure Procedure Detail Performing Clinician Start: 08-24-2024 CL Closure Device Placement 0 MD Josette Nova Work Phone: Start: 08-24-2024 CL LHC & COR Angio MD Cody Nova Work Phone: Start: 08-24-2024 CL PCI AMI 1st Vesse l RCA ANGELO MD Josette Nova Work Phone: Start: 08-24-2024 MD Josette Nova Work Phone: Start: 08-23-2024 Plain chest X-ray MD Rene Nova Work Phone: Start: 03-30-2024 Screening colonoscopy M Dalia Torres Work Phone: Start: 02-01-[address] VIV TORRES Comment on above: Performed By: #### P [facility] #### [facility] [address] [address] [address] Monster Cobian Plan of Treatment Date Care Activity Detail Author Start: 08-25-2024 [facility] Start: 08-24-2024 Consultation [facility] Start: 08-24-2024 Hospital admission [facility] Start: 08-24-2024 Referral to cardiac rehabilitation program [facility] Start: 08-24-2024 [facility] Start: 03-30-2024 [facility] Bacteria identified in Urine by Culture URINE CULTURE Microbiology Routine Urinary tract infection with hematuria, site unspecified Ordered: 05/05/2022 [facility] Work Phone: Comment on above: Ordered: 05/05/2022 Patient Education [facility] Work Phone: Patient referral [facility] Work Phone: Immunizations Immunization Date Immunization Notes Care Provider Filiberto levin 10-06-2023 zoster vaccine recombinant Jeff BAILEY [facility] 07-10-2023 zoster vaccine recombinant Jeff BAILEY [facility] 08-11-2021 influenza, unspecifi ed formulation Jeff BAILEY [facility] 02-09-2021 SARS-CoV-2 (COVID-19 ) mRNA BNT-162b2 vax Jeff BAILEY [facility] 01-20-2021 SARS-CoV-2 (COVID-19 ) mRNA BNT-162b2 vax Jeff BAILEY [facility] 09-17-2019 influenza, unspecifi ed formulation Jeff BAILEY [facility] Payers Date Payer Category Payer Unknown [id number] .[id number] 1965 Unknown [id number] .16.8 [id number] 1965 Unknown [id number] .16.8 [id number] 1965 Unknown [id number] .16.8 [id number] 1959 Self-pay 1959 Unknown [id number] Unknown [id number] Unknown [id number] 2.16.8 [id number] Unknown [id number] [id number] Unknown [id number] Social History Date Type Detail Facility Tobacco smoking status NHIS Tobacco smoking consumption unknown [facility] Start: 1965 Sex Assigned At Not on file [facility] Start: 02-11-2024 End: 08-24-2024 Tobacco smoking status Never smoked tobacco (finding) [facility] Tobacco smoking status Never [facility] Sex Assigned At Male [facility] Start: 1965 Sex Assigned At Male F [facility] Medical Equipment Procedure Code Equipment Code Equipment Origin al Text Equipment Identifier Dates CL STENT RUSSELL FRONTIER 4.0 X 18 FDA Start: 08-24-2024 Femoral artery closure plug/patch, synthetic polymer ()[id number] FDA Start: 08-24-2024 Goals Date Patient Goal Desired Activity /State Functional Status Date Assessment Result Facility 08-25-2024 Functional status Patient at Baseline [facility] Work Phone: 04-13-2024 Functional Status N/A [facility] 02-11-2024 Functional Status N/A [facility] Mental Status Date Assessment Result Facility 08-25-2024 Cognitive function Cognitive Sta tus Patient at Baseline [facility] Work Phone: Clinical Notes 05-04-2022 to 08-25-2024 Note Date & Type Note Facility 08-25-2024 Discharge summary Note Date/Time August 25, 2024 12:37pm [facility] [address] [place] [address] Discharge Summary Signed Patient: Isma Hwang MR#: [id number] : 1965 Acct:[id number] Age/Sex: 59 / M Adm Date: 4 Loc: Room: [address] [place] [address]: Guilherme Joseph DO Copies to: MD Guilherme Urban DO~ Providers Date of Discharge: 08/25/24 Discharging Provider: Guilherme Joseph Primary Care Provider: Andrea Torres Consults: 08/24/24 01:57 Consult to Pulmonology Routine Comment: Consulting Provider: Sandy Henderson Reason For Exam: Critical Care Management Has Provider Been Notified: Yes Date of Notification: 08/24/24 Time of Notification: 08:55 Extended Comment: Stable inferior STEMI with PCI RCA, normal LV function; no pulmonary issues Consult to Cardiac Rehabilitation Routine Comment: Physician Instructions: Reason for Consult: Patient Education Discharge Diagnosis (1) ST elevation [place] (STEMI): Final Diagnosis Final Discharge Diagnosis: Inferior ST elevation NJ PCI distal RCA Summary Hospital Course Hospital course: 59-year-old gentleman presented with inferior STEMI underwent rapid revascularization of the distal RCA with large drug-eluting stent, LV function yesterday and today by echo are completely normal. He will be discharged on current therapies, DAPT x 1 year, high intensity statin, follow-up with cardiology via TCM office visit and cardiac rehab arranged, 30 minutes of discharge planning, education, compliance of medical therapies discussed this morning. Condition Condition at Discharge: Stable Status at Discharge Functional status at discharge: independent ambulation Overall status at discharge: patient is back to baseline Time Spent with Patient Time spent providing/coordinating discharge services (# min): 30 Surgeries and Procedures Operation Date: 08/24/24 00:40 Actual Procedures p CL LHC & COR Angio - Guilherme Joseph DO p CL PCI AMI 1st Vessel RCA ANGELO - Guilherme Joseph DO p CL Closure Device Placement 0 - W Casper Joseph DO Complications Complications: None Discharge Plan Discharge Plan Patient Disposition: Home Diet: Low-Cholesterol Additional Instructions: DISCHARGE INSTRUCTIONS FOR ANGIOPLASTY/CORONARY/PERIPHERAL/STENT IMPLANT FOR ADULT ANTICOAGULATION -Since the greatest risk of a blood clot forming with the stent occurs in the first 2-3 weeks after implantation, you will need to take anticoagulants for at least 12-18 months. ANTICOAGULATION MEDICATION Aspirin 81mg once a day, Ticagrelor (Brilinta) 90mg twice a day STATIN MEDICATION Atorvastatin (Lipitor) 80 mg Drug-Eluting Stent (ANGELO) DO NOT discontinue Brilinta/Aspirin during the first few months regardless of what you are advised by your family doctor or pharmacist, without first calling the wide area network systems administrator who implanted the stent. If you require pain relief during this time, please take only ACETAMINOPHEN (TYLENOL)- NO additional aspirin or ibuprofen. DISCHARGE ACTIVITIES ARE FOLLOWS: First week after discharge: -Take it easy at home, no strenuous activity. -Do not lift or pull objects over 10-15 pounds, including children, and groceries for four weeks. If puncture site is at wrist do NOT lift more than three pounds for three days. - May walk up stairs. -May shower. -No excessive scrubbing of the affected site (groin). -May ride in car. -May resume sexual intercourse after 1-2 weeks. -No MRI for 12 days. -May drive in 4-7 days. -If puncture site is at the wrist do not manipulate the wrist for 24 hours, and no soaking wrist for three days. Second Week: -May take a bath -May start walking 3 times a week for 15-20 minutes at a leisurely pace. You should be able to carry on a conversation comfortably without feeling winded. -No strenuous activity as in jogging, running, weight lifting, stair steppers, etc. until the wide area network systems administrator approves these activities. Check with the wide area network systems administrator on your first follow-up visit. CALL YOUR BINGO WORKER: -If bleeding should occur from the catheter insertion site- apply pressure to the site then immediately call us. -Report any fever, redness, drainage, increased swelling, or firmness at the catheter insertion site. Some bruising or slight swelling may be present at the time of discharge. -Should arm or leg become cold, numb, white, or blue, contact the wide area network systems administrator immediately. -IF you should experience episodes of angina, e.g. chest discomfort, heaviness, tightness, pressure burning with or without radiation to the neck, jaw, arms or back- use 1 Nitrostat tablet under your tongue every 5-10 minutes and up to three tablets. IF NO RELIEF, CALL 911 or GO TO THE NEAREST EMERGENCY ROOM. -Please notify our office if you have recurrent angina. -Cardiac Rehab Education Provided. Participation in the Cardiopulmonary Rehabilitation program is recommended. The attending wide area network systems administrator or a nurse clinician should provide you with specificinstructions regarding activity, diet, medications, and further follow up for you. Follow the medication instructions provided on your discharge. If the dosages and instructions on this sheet differ from the dosage and instructions on the bottle, follow the instructions on the bottle. [facility] is not responsible for incorrect prescription information provided by thepatient during their visit. Do not stop your medications without consulting your health care provider. Please take the list with you to your next doctor's appointment. Instructions: Coronary Angioplasty (DC), Coronary Stenting (DC), Angina (DC), Chest Pain (DC), Drug Eluting Stents, Know your Meds Stand Alone Forms: Work/School Release Form Prescriptions: New atorvastatin 80 mg Tablet 80 mg PO QPM 90 Days Qty: 90 3RF aspirin 81 mg Tablet,Delayed Release (Dr/Ec) 81 mg PO DAILY 90 Days Qty: 90 3RF nitroglycerin 0.4 mg Tablet, Sublingual 0.4 mg sublingual Q5M PRN (Reason: Chest Pain) 30 Days Qty: 25 3RF lisinopril 2.5 mg Tablet 2.5 mg PO DAILY 90 Days Qty: 90 3RF metoprolol tartrate 25 mg Tablet 25 mg PO BID 90 Days Qty: 180 3RF Brilinta 90 mg Tablet 90 mg PO BID 90 Days Qty: 180 3RF Continued Clenpiq 10 mg-3.5 gram- 12 gram/175 mL solution 175 ml PO DAILY 1 Days Qty: 1 0RF Rx Instructions: please follow instructions provided by Dr. Linda's office. minocycline 100 mg capsule 100 mg PO QAM tamsulosin 0.4 mg capsule 0.4 mg PO DAILY cetirizine [24Hour Allergy] 10 mg tablet 10 mg PO DAILY PRN (Reason: allergy symptoms) Emergen-C 1 tab PO DAILY Follow Up: Guilherme Joseph DO [Active Staff - D.O.] - 09/04/24 10:40 am Andrea Torres MD [Primary Care Provider] - 3-5 Days Exam Physical Exam Vital Signs: Temp Pulse Resp BP Pulse Ox O2 Del Method 98.5 F 77 24 122/83 97 Room Air 08/25/24 08:00 08/25/24 08:00 08/25/24 08:00 08/25/24 08:00 08/25/24 08:00 08/25/24 08:00 Const General: cooperative, healthy appearing, comfortable and well developed Nutritional Appearance: obese Orientation: alert, awake and oriented x3 HEENT Head: normal to inspection Neck Neck: normal visual inspection Chest Chest palpation & inspection: normal inspection of the chest Resp Effort & Inspection: normal respiratory effort Auscultation: clear to auscultation bilaterally Cardio Palpation: normal PMI Rate: regular rate Rhythm: regular rhythm Heart Sounds: S1 normal and S2 normal Bruits: no carotid bruits Pulses: radial pulses present and femoral pulses present GI Palpation: soft Skin General: no rashes or lesions noted Neuro General: patient alert, patient awake and patient oriented x3 Cognition: normal cognition Speech: speech normal Extrem General: no clubbing, cyanosis or edema Diagnostic Studies Completed and Pending Studies Pending studies at discharge: 08/24/24 01:25 ECG 12 lead ECG Stat 08/26/24 05:00 ECG 12 lead ECG IN AM Basic Metabolic Panel [CHEM] IN AM Complete Blood Count Auto Diff IN AM 08/27/24 05:00 Basic Metabolic Panel [CHEM] IN AM Complete Blood Count Auto Diff IN AM 08/28/24 05:00 Basic Metabolic Panel [CHEM] IN AM Complete Blood Count Auto Diff IN AM Labs on day of discharge: 08/25/24 04:20: Corrected WBC 10.4, Uncorrected WBC Count 10.4, RBC 4.95, Hgb 14.3, Hct 42.1, MCV 85.0, MCH 28.9, MCHC 34.0, RDW 13.5, Plt Count 198, MPV 8.7, Neut % (Auto) 66.4, Lymph % (Auto) 22.6, Costilla % (Auto) 9.0, Eos % (Auto) 1.5, Baso % (Auto) 0.5, Nucleat RBC Rel Count 0.0, Neut # (Auto) 6.9, Lymph # (Auto) 2.3, Costilla # (Auto) 0.9 H, Eos # (Auto) 0.2, Baso # (Auto) 0.1, PHA Creatinine Clear 103.07, Sodium 134 L, Potassium 5.0, Chloride 104, Carbon Dioxide 26.0, Anion Gap 9.0, BUN 12, Creatinine 0.94, Est GFR (CKD-EPI) > 60.0, Glucose 101 H, Calcium 9.1 Documented By: Guilherme Joseph DO 08/25/24 1234 Signed By: <Electronically signed by Guilherme Joseph DO> 08/25/24 1237 [facility] Work Phone: 1(105) 907-127911-04-2024 Progress note Author Guilherme Joseph [facility] August 24, 2024 12:48pm Note Date/Time August 24, 2024 1 2:46pm [facility] [address] [place] [address] Cardiology Progress Note Signed Patient: Isma Hwang MR#: [id number] : 1965 Acct:[id number] Age/Sex: 59 / M Adm Date: 4 Loc: Room: [address] [place] [address] Type: ADM IN Attending Dr: Guilherme Joseph DO Copies to: ~ Date of Service: 08/24/2024 Subjective Principal diagnosis: Inferior STEMI Interval history: Mr. Hwang is a 59 year old male admitted through the emergency room this morning with new onset chest pressure and discomfort, initial ECG revealed inferior ST elevation injury current via the squad, confirmed after arrival in the ER. Casediscussed with Dr. Nova; ECG data reviewed, Nursing Informatics Analyst team activated; appropriate upstream therapies administered. ECG from squad: 2344; ER door: 2351; PCI: 0105; door to device time 74 minutes There is no prior history of myocardial infarction, revascularization, stroke, thromboembolic or bleeding disorder No history of diabetes mellitus, tobacco use, hypertension Patient arrived hemodynamically stable, with ongoing chest discomfort no evidence of arrhythmias or heart failure Total 60 minutes of nonprocedural critical care time were devoted to ER staff, Nursing Informatics Analyst staff, nursing staff, patient both pre and post procedurally Interim evaluation 08/24/2024: Stable this morning without evidence of heart failure or arrhythmias, mild chest discomfort status post primary PCI RCA.. Troponins have already peaked at 5700 and down to 4600 this morning ECG with normalization of ST segments in sinus rhythm. Discussed case with and patient and critical care nursing this morning; patient and have plans to travel to [facility] this Saturday for ; I see no contraindications. Will continue observation for the next 24 hours with tentative discharge tomorrow on current therapies. Exam Physical Exam Vital Signs: Temp Pulse Resp BP Pulse Ox O2 Del Method 98.2 F 77 20 137/89 100 Room Air 08/24/24 09:00 08/24/24 09:00 08/24/24 09:00 08/24/24 09:00 08/24/24 09:00 08/24/24 09:00 Const General: cooperative, healthy appearing, comfortable, well developed and in distress mild Nutritional Appearance: obese Orientation: alert, awake and oriented x3 HEENT Head: normal to inspection Neck Neck: normal visual inspection Chest Chest palpation & inspection: normal inspection of the chest Resp Effort & Inspection: normal respiratory effort Auscultation: clear to auscultation bilaterally Cardio Palpation: normal PMI Rate: regular rate Rhythm: regular rhythm Heart Sounds: S1 normal and S2 normal Bruits: no carotid bruits Pulses: radial pulses present and femoral pulses present GI Palpation: soft Skin General: no rashes or lesions noted Neuro General: patient alert, patient awake and patient oriented x3 Cognition: normal cognition Speech: speech normal Extrem General: no clubbing, cyanosis or edema Objective Labs 08/24/24 04:19 08/24/24 04:19 Labs: Laboratory Results - last 24 hr 08/23/24 08/23/24 08/24/24 23:56 23:59 04:19 Corrected WBC 13.3 H 10.5 Uncorrected WBC Count 13.3 H 10.5 RBC 5.06 4.92 Hgb 14.5 14.3 Hct 42.5 42.4 MCV 84.0 86.2 MCH 28.7 29.0 MCHC 34.1 33.6 RDW 13.4 13.2 Plt Count 275 223 MPV 8.9 8.8 Neut % (Auto) 51.6 78.9 Lymph % (Auto) 37.3 15.6 Costilla % (Auto) 8.7 4.6 Eos % (Auto) 1.4 0.2 Baso % (Auto) 1.0 0.7 Nucleat RBC Rel Count 0.1 0.0 Neut # (Auto) 6.8 8.3 H Lymph # (Auto) 4.9 H 1.6 Costilla # (Auto) 1.2 H 0.5 Eos # (Auto) 0.2 0.0 Baso # (Auto) 0.1 0.1 Monocyte Dist Width 19.50 PT 10.7 INR 0.9 PHA Creatinine Clear 82.46 94.99 Sodium 140 137 Potassium 3.4 L 4.9 D Chloride 105 104 Carbon Dioxide 28.0 27.0 Anion Gap 10.4 10.9 BUN 17 15 Creatinine 1.23 1.02 Est GFR (CKD-EPI) > 60.0 > 60.0 Glucose 100 108 H Calcium 9.2 8.8 Total Creatine Kinase 50 Troponin I High Sens 4.6 2133.2 H* B-Natriuretic Peptide 15.0 08/24/24 08/24/24 08/24/24 06:58 08:36 10:22 Corrected WBC Uncorrected WBC Count RBC Hgb Hct MCV MCH MCHC RDW Plt Count MPV Neut % (Auto) Lymph % (Auto) Costilla % (Auto) Eos % (Auto) Baso % (Auto) Nucleat RBC Rel Count Neut # (Auto) Lymph # (Auto) Costilla # (Auto) Eos # (Auto) Baso # (Auto) Monocyte Dist Width PT INR PHA Creatinine Clear Sodium Potassium Chloride Carbon Dioxide Anion Gap BUN Creatinine Est GFR (CKD-EPI) Glucose Calcium Total Creatine Kinase Troponin I High Sens 5250.4 H* 5722.1 H* 4665.3 H* B-Natriuretic Peptide A&P - Cardiology (1) ST elevation NJ (STEMI): Code(s): I21.3 - ST elevation (STEMI) myocardial infarction of unspecified site Plan Cath/emergent PCI Documented By: Guilherme Joseph DO 08/24/24 1245 Signed By: <Electronically signed by Guilherme Joseph DO> 08/24/24 1248 [facility] Work Phone: 1(688) 881-483911-04-2024 Progress note Author Guilherme Joseph [facility] August 24, 2024 12:45pm Note Date/Time August 24, 2024 1 2:45pm [facility] [address] [place] [address] Cardiology Progress Note Signed Patient: Isma Hwang MR#: [id number] : 1965 Acct:[id number] Age/Sex: 59 / M Adm Date: 4 Loc: Room: 5O1960-2 Type: ADM IN Attending Dr: Guilherme Joseph DO Copies to: ~ Date of Service: 08/24/2024 Subjective Interval history: Mr. Hwang is a 59 year old male admitted through the emergency room this morning with new onset chest pressure and discomfort, initial ECG revealed inferior ST elevation injury current via the squad, confirmed after arrival in the ER. Casediscussed with Dr. Nova; ECG data reviewed, Nursing Informatics Analyst team activated; appropriate upstream therapies administered. ECG from squad: 2344; ER door: 2351; PCI: 0105; door to device time 74 minutes There is no prior history of myocardial infarction, revascularization, stroke, thromboembolic or bleeding disorder No history of diabetes mellitus, tobacco use, hypertension Patient arrived hemodynamically stable, with ongoing chest discomfort no evidence of arrhythmias or heart failure Total 60 minutes of nonprocedural critical care time were devoted to ER staff, Nursing Informatics Analyst staff, nursing staff, patient both pre and post procedurally Exam Physical Exam Vital Signs: Temp Pulse Resp BP Pulse Ox O2 Del Method 98.2 F 77 20 137/89 100 Room Air 08/24/24 09:00 08/24/24 09:00 08/24/24 09:00 08/24/24 09:00 08/24/24 09:00 08/24/24 09:00 Const General: cooperative, healthy appearing, comfortable and well developed Nutritional Appearance: obese Orientation: alert, awake and oriented x3 HEENT Head: normal to inspection Neck Neck: normal visual inspection Chest Chest palpation & inspection: normal inspection of the chest Resp Effort & Inspection: normal respiratory effort Auscultation: clear to auscultation bilaterally Cardio Palpation: normal PMI Rate: regular rate Rhythm: regular rhythm Heart Sounds: S1 normal and S2 normal Bruits: no carotid bruits Pulses: radial pulses present and femoral pulses present GI Palpation: soft Skin General: no rashes or lesions noted Neuro General: patient alert, patient awake and patient oriented x3 Cognition: normal cognition Speech: speech normal Extrem General: no clubbing, cyanosis or edema Objective Labs 08/24/24 04:19 08/24/24 04:19 Labs: Laboratory Results - last 24 hr 08/23/24 08/23/24 08/24/24 23:56 23:59 04:19 Corrected WBC 13.3 H 10.5 Uncorrected WBC Count 13.3 H 10.5 RBC 5.06 4.92 Hgb 14.5 14.3 Hct 42.5 42.4 MCV 84.0 86.2 MCH 28.7 29.0 MCHC 34.1 33.6 RDW 13.4 13.2 Plt Count 275 223 MPV 8.9 8.8 Neut % (Auto) 51.6 78.9 Lymph % (Auto) 37.3 15.6 Costilla % (Auto) 8.7 4.6 Eos % (Auto) 1.4 0.2 Baso % (Auto) 1.0 0.7 Nucleat RBC Rel Count 0.1 0.0 Neut # (Auto) 6.8 8.3 H Lymph # (Auto) 4.9 H 1.6 Costilla # (Auto) 1.2 H 0.5 Eos # (Auto) 0.2 0.0 Baso # (Auto) 0.1 0.1 Monocyte Dist Width 19.50 PT 10.7 INR 0.9 PHA Creatinine Clear 82.46 94.99 Sodium 140 137 Potassium 3.4 L 4.9 D Chloride 105 104 Carbon Dioxide 28.0 27.0 Anion Gap 10.4 10.9 BUN 17 15 Creatinine 1.23 1.02 Est GFR (CKD-EPI) > 60.0 > 60.0 Glucose 100 108 H Calcium 9.2 8.8 Total Creatine Kinase 50 Troponin I High Sens 4.6 2133.2 H* B-Natriuretic Peptide 15.0 08/24/24 08/24/24 08/24/24 06:58 08:36 10:22 Corrected WBC Uncorrected WBC Count RBC Hgb Hct MCV MCH MCHC RDW Plt Count MPV Neut % (Auto) Lymph % (Auto) [place]illa % (Auto) Eos % (Auto) Baso % (Auto) Nucleat RBC Rel Count Neut # (Auto) Lymph # (Auto) Costilla # (Auto) Eos # (Auto) Baso # (Auto) Monocyte Dist Width PT INR PHA Creatinine Clear Sodium Potassium Chloride Carbon Dioxide Anion Gap BUN Creatinine Est GFR (CKD-EPI) Glucose Calcium Total Creatine Kinase Troponin I High Sens 5250.4 H* 5722.1 H* 4665.3 H* B-Natriuretic Peptide A&P - Cardiology (1) ST elevation NJ (STEMI): Code(s): I21.3 - ST elevation (STEMI) myocardial infarction of unspecified site Plan Cath/emergent PCI Documented By: Guilherme Joseph DO 08/24/241244 Signed By: <Electronically signed by Guilherme Joseph DO> 08/24/24 1245 [facility] Work Phone: 1([phone] 400-874011-04-2024 Consult note Author Basem Beatriz [facility] August 24, 2024 11:52am Note Date/Time August 24, 2024 1 1:52am [facility] [address] [place] [address] Pulmonology Consult Note Signed Patient: Isma Hwang MR#: [id number] : 1965 Acct:[id number] Age/Sex: 59 / M Adm Date: 4 Loc: Room: [address] [place] [address] Type: ADM IN Attending Dr: Guilherme Joseph DO Copies to: MD Andrea Davila MD W Scott Sheldon, DO~ HPI Date/Time of Consultation: Date of Service: 08/24/2024 Time of Service: 11:48 Consulting Provider: Sandy Henderson Requesting Provider: Guilherme Joseph Reason for Consult: Acute NJ History of Present Illness History of present illness: Mr. Hwang is a 59 year old male presented to the emergency room with new onset chest pressure and discomfort, initial ECG revealed inferior ST elevation injurycurrent via the squad, confirmed after arrival in the ER. The patient was takento the Nursing Informatics Analyst and received stenting to the RCA and transferred to ICU. Critical care consultation was requested. The patient reports that his chest pain is significantly improved since admission. The shortness of breath that originally had on arrival has resolved and denies cough, sputum production, abdominal pain or lower extremity edema. He denies prior pulmonary issues. He smokes an occasional cigar. Review of Systems Review of Systems All other systems reviewed & are negative unless noted below or in HPI [facility] Medical History Broken finger Left hand, middle finger x30 yrs ago. Enlarged prostate Recent dx January 2024. Surgical History No pertinent past surgical history Family History Mother Diabetes Non-Hodgkin lymphoma CAD (coronary artery disease) Myocardial infarction Hypothyroid Father Aneurysm Diverticulitis Social History Smoking Status: Never smoker Tobacco Type: cigars Substance Use Type: Alcohol Meds Medications and Allergies Allergies No Known Allergies Allergy (Verified 03/30/24 08:05) Home Medications sod picosulf 10 mg-magnes 3.5 gram-citric 12 gram/175 mL oral solution (Clenpiq)175 ml PO DAILY 1 day #1 kit 01/29/24 [Rx Confirmed 08/24/24] minocycline 100 mg capsule 100 mg PO QAM 03/18/24 [History Confirmed 08/24/24] tamsulosin 0.4 mg capsule 0.4 mg PO DAILY 03/18/24 [History Confirmed 08/24/24] Emergen-C 1 tab PO DAILY 03/30/24 [History Confirmed 08/24/24] cetirizine 10 mg tablet (24Hour Allergy) 10 mg PO DAILY PRN allergy symptoms 03/30/24 [History Confirmed 08/24/24] Exam Physical Exam Vital Signs: Temp Pulse Resp BP Pulse Ox O2 Del Method 98.2 F 77 20 137/89 100 Room Air 08/24/24 09:00 08/24/24 09:00 08/24/24 09:00 08/24/24 09:00 08/24/24 09:00 08/24/24 09:00 Narrative: General: Awake and alert, appears in no acute respiratory distress HEENT: Head normocephalic atraumatic. Neck: Supple. Pulmonary: Diminished breath sounds to both lung ramirez without wheezing. Cardiovascular: Regular rate and rhythm. No murmurs Abdomen: Soft, nontender and nondistended. Extremities: No edema. 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 Psych: Appears appropriate without signs of anxiety or depression. Results - Pulmonology Intake and Output I&O - Last 24 Hours: Intake & Output 08/23/24 08/24/24 08/24/24 23:59 07:59 15:59 Intake Total 400 / 400 Output Total 600 / 600 Balance -200 / -200 Weight 109 kg 105.8 kg Labs 08/24/24 04:19 08/24/24 04:19 Assessment/Plan (1) ST elevation NJ (STEMI): Plan: Underwent cardiac cath with emergent PCI with stenting to the RCA. Currently with no significant symptoms, hemodynamically stable and with good saturation on room air. Will continue with Brilinta, Lopressor, low-dose YADIRA inhibitors per cardiology team and or DVT prophylaxis. Further plans per cardiology team. Likely discharge home tomorrow if he continues to stabilize. I will follow peripherally. Please call back if needed. Discussed above with the patient. Documented By: Sandy Henderson MD 08/24/24 1148 Signed By: <Electronically signed by Sandy Henderson MD> 08/24/24 0132 [facility] Work Phone: 1(554) 742-438111-04-2024 History and physical note Author Guilherme Joseph [facility] August 24, 2024 1:15am Note Date/Time August 24, 2024 1 2:40am [facility] [address] [place] [address] Cardiology H&P Signed Patient: Isma Hwang MR#: [id number] : 1965 Acct:[id number] Age/Sex: 59 / M Adm Date: 4 Loc: Room: Type: [facility] Attending Dr: Guilherme Joseph DO Copies to: MD Guilherme Urban DO~ Date of Service: 08/24/2024 Cardiology HPI History of Present Illness Chief complaint: Inferior STEMI HPI: Mr. Hwang is a 59 year old male admitted through the emergency room this morning with new onset chest pressure and discomfort, initial ECG revealed inferior ST elevation injury current via the squad, confirmed after arrival in the ER. Casediscussed with Dr. Nova; ECG data reviewed, Nursing Informatics Analyst team activated; appropriate upstream therapies administered. ECG from squad: 2344; ER door: 2351; PCI: 0105; door to device time 74 minutes There is no prior history of myocardial infarction, revascularization, stroke, thromboembolic or bleeding disorder No history of diabetes mellitus, tobacco use, hypertension Patient arrived hemodynamically stable, with ongoing chest discomfort no evidence of arrhythmias or heart failure Total 60 minutes of nonprocedural critical care time were devoted to ER staff, Nursing Informatics Analyst staff, nursing staff, patient both pre and post procedurally Review of Systems Review of Systems All other systems reviewed & are negative unless noted below or in HPI Constitutional Constitutional: Reports as per HPI Cardiovascular Cardiovascular: Reports as per HPI and Reports chest pain at rest [facility] Medical History (Updated 08/24/24 @ 00:17 by Alicia Parks) Broken finger Enlarged prostate Surgical History No pertinent past surgical history Family History (Updated 03/30/24 @ 08:20 by Nancy Dean RN) Mother Non-Hodgkin lymphoma Diabetes Father Aneurysm Diverticulitis Social History Smoking Status: Never smoker Substance Use Type: Alcohol Meds Medications and Allergies Allergies No Known Allergies Allergy (Verified 03/30/24 08:05) Home Medications sod picosulf 10 mg-magnes 3.5 gram-citric 12 gram/175 mL oral solution (Clenpiq)175 ml PO DAILY 1 day #1 kit 01/29/24 [Rx] minocycline 100 mg capsule 100 mg PO DAILY 03/18/24 [History Confirmed 03/18/24] tamsulosin 0.4 mg capsule 0.4 mg PO DAILY 03/18/24 [History Confirmed 03/18/24] Emergen-C 1 tab PO DAILY 03/30/24 [History Confirmed 03/30/24] cetirizine 10 mg tablet (24Hour Allergy) 10 mg PO DAILY PRN allergy symptoms 03/30/24 [History Confirmed 03/30/24] Exam Physical Exam Vital Signs: Temp Pulse Resp BP Pulse Ox O2 Del Method 97.5 F L 62 18 132/96 98 Room Air 08/24/24 00:04 08/24/24 00:32 08/24/24 00:32 08/24/24 00:32 08/24/24 00:32 08/24/24 00:32 Const General: cooperative, well developed and in distress mild Nutritional Appearance: obese Orientation: alert, awake and oriented x3 HEENT Head: normal to inspection Neck Neck: normal visual inspection Chest Chest palpation & inspection: normal inspection of the chest Resp Effort & Inspection: normal respiratory effort Auscultation: clear to auscultation bilaterally Cardio Palpation: normal PMI Rate: regular rate Rhythm: regular rhythm Heart Sounds: S1 normal and S2 normal Bruits: no carotid bruits Pulses: radial pulses present and femoral pulses present GI Palpation: soft Skin General: no rashes or lesions noted Neuro General: patient alert, patient awake and patient oriented x3 Cognition: normal cognition Speech: speech normal Extrem General: no clubbing, cyanosis or edema Results - Cardiology Labs 08/23/24 23:56 08/23/24 23:59 Lab results: Cardiac Enzymes 08/23/24 Range/Units 23:56 Total Creatine Kinase 50 (30-223) U/L CBC 08/23/24 Range/Units 23:56 RBC 5.06 (3.90-5.60) X10E6/uL Hgb 14.5 (13.0-17.0) g/dL Hct 42.5 (38.8-50.0) % Plt Count 275 (150-450) x10E3/uL Neut # (Auto) 6.8 (1.8-7.7) x10E3/uL Lymph # (Auto) 4.9 H (1.00-4.8) x10E3/uL [place] # (Auto) 1.2 H (0.0-0.8) x10E3/uL Eos # (Auto) 0.2 (0.0-0.45) x10E3/uL Baso # (Auto) 0.1 (0.0-0.2) x10E3/uL Comprehensive Metabolic Panel 08/23/24 Range/Units 23:59 Sodium 140 (136-145) mmol/L Potassium 3.4 L (3.5-5.1) mmol/L Chloride 105 (98-107) mmol/L Carbon Dioxide 28.0 (21.0-31.0) mmol/L BUN 17 (7-25) mg/dL Creatinine 1.23 (0.70-1.30) mg/dL Glucose 100 (70-100) mg/dL Calcium 9.2 (8.6-10.3) mg/dL Intake and Output 08/23/24 08/23/24 08/24/24 15:59 23:59 07:59 Other: Weight 109 kg EKG Interpretations EKG EKG results cardiology: sinus rhythm NJ, pacemaker, normal Myocardial infarction: inferior NJ (acute or recent) A&P - Cardiology (1) ST elevation NJ (STEMI): Code(s): I21.3 - ST elevation (STEMI) myocardial infarction of unspecified site Plan Cath/emergent PCI Documented By: Guilherme Joseph DO 08/24/24 0038 Signed By: <Electronically signed by Guilherme Joseph DO> 08/24/24 0115 [facility] Work Phone: 1(106) 571-433911-04-2024 [facility] [facility] Hospital Discharge instructions Patient Education 04/13/2024 10:30:37 Prostate Cancer Screening Prostate Cancer Screening Prostate cancer screening is testing that is done to check for the presence of prostate cancer in men. The prostate gland is a walnut-sized gland that is located below the bladder and in front of therectum in males. The function of the prostate is to add fluid to semen during ejaculation. Prostatecancer is one of the most common types of cancer in men. Who should have prostate cancer screening? Screening recommendations vary based on age and other risk factors, as well as between the professional organizations who make the recommendations. In general, screening is recommended if: You are age 50 to 70 and have an average risk for prostate cancer. You should talk with your healthcare provider about your need for screening and [...] diagnosed with prostate cancer. The risk is higherif your family member's cancer occurred at an early age or if you have multiple family members withprostate cancer at an early age. ?Being a [...] is a blood test called the prostate-specific antigen(PSA) test. PSA is a protein that is [...] treatment? Where to find more information The [employer]: www.cancer.org [employer]: www.auanet.org Contact a health care [...] the recommended screening test for prostate cancer, butit has associated risks. Discuss the risks and [...] provider. Document Revised: 04/02/2022 Document Reviewed: 04/02/2022 [employer] Patient Education 2022 MAZ. Follow Up Care 02/11/2024 09:36:22 With:LEO DIAZ, Jeff Sanchez, URL Address: [facility] [address] [place], [place] [id number]- When: Unknown [facility] [phone] History and physical note Author Ken Linda [facility] March 30, 2024 8:33am Note Date/Time March 30, 2024 8:33 am [facility] [address] [place], [place] [id number] Gastroenterology H&P Signed Patient: Isma Hwang MR#: [id number] : 1965 Acct:[id number] Age/Sex: 58 / M Adm Date: 4 Loc: Room: Type: [facility] Attending Dr: Ken Linda MD Copies [...] Linda MD Documented By: Ken Linda MD 03/30/24832 Signed By: <Electronically signed by Ken Linda MD> 03/30/24832 [facility] Work Phone: 1(304) 106-667706-10-2024 [facility] Hospital Discharge instructions Patient Education 02/11/2024 09:25:27 Prostate Cancer Screening Prostate Cancer Screening Prostate cancer screening is testing that is done to check for the presence of prostate cancer in men. The prostate gland is a walnut-sized gland that is located below the bladder and in front of therectum in males. The function of the prostate is to add fluid to semen during ejaculation. Prostatecancer is one of the most common types of cancer in men. Who should have prostate cancer screening? Screening recommendations vary based on age and other risk factors, as well as between the professional organizations who make the recommendations. In general, screening is recommended if: You are age 50 to 70 and have an average risk for prostate cancer. You should talk with your healthcare provider about your need for screening and [...] diagnosed with prostate cancer. The risk is higherif your family member's cancer occurred at an early age or if you have multiple family members withprostate cancer at an early age. ?Being a [...] is a blood test called the prostate-specific antigen(PSA) test. PSA is a protein that is [...] treatment? Where to find more information The [employer]: www.cancer.org [employer] Association: www.auanet.org Contact a health care [...] the recommended screening test for prostate cancer, butit has associated risks. Discuss the risks and [...] provider. Document Revised: 04/02/2022 Document Reviewed: 04/02/2022 [employer] Patient Education 2022 MAZ. Follow Up Care 01/13/2024 15:32:49 With:LEO DIAZ, Jeff Sanchez, URL Address: [facility] [address] [address]- When: Unknown [facility] Kari 07-15-2022 NoteHNO ID: [id number] Author: Lida Sparrow LPN Service: ? Author Type: LICENSED NURSE Type: Progress Notes Filed: 05/05/2022 6:47 PM Note Text: Patient was seen to have SPT exchange from 14fr to 16fr. Urine obtained via new indwelling spt catheter.[facility] 05-04-2022 History of Present illness Narrative* Lida Sparrow LPN - 05/04/2022 8:36 AM EDT Patient was seen to have SPT exchange from 14fr to 16fr. Urine obtained via new indwelling spt catheter. [facility] Plan note Future Appointments Appointment Date:04/13/2024 09:15:00 AM Scheduled Provider:Jeff BAILEY MD Location:[facility] Appointment Type:URO Office Visit Diagnostic Tests Pending * PSA Free & Total 02/11/24 [facility] Evaluation + Plan note Future Appointments Appointment Date:10/19/2024 09:45:00 AM Scheduled Provider:Jeff BAILEY MD Location:[facility] Appointment Type:URO Office Visit Diagnostic Tests Pending * PSA Free & Total 04/13/24 [facility] Evaluation note* Diagnosis Urinary tract infection with hematuria, site unspecified- Primary documented in this encounter [facility] noteNo assessment information [facility] Work Phone: Evaluation note* Diagnosis Onset Date Resolution Status ST elevation [place] (STEMI) [facility] Work Phone: Hospital course Narrative No data available for this section [facility] Discharge instructions Additional Instructions DISCHARGE INSTRUCTIONS FOR ANGIOPLASTY/CORONARY/PERIPHERAL/STENT IMPLANT FOR ADULT ANTICOAGULATION -Since the greatest risk of a blood clot forming with the stent occurs in the first 2-3 weeks after implantation, you will need to take anticoagulants for at least 12-18 months. ANTICOAGULATION MEDICATION Aspirin 81mg once a day, Ticagrelor (Brilinta) 90mg twice a day STATIN MEDICATION Atorvastatin (Lipitor) 80 mg Drug-Eluting Stent (ANGELO) DO NOT discontinue Brilinta/Aspirin during the first few months regardless of what you are advised by your family doctor or pharmacist, without first calling the wide area network systems administrator who implanted the stent. If you require pain relief during this time, please take only ACETAMINOPHEN (TYLENOL)- NO additional aspirin or ibuprofen. DISCHARGE ACTIVITIES ARE FOLLOWS: First week after discharge: -Take it easy at home, no strenuous activity. -Do not lift or pull objects over 10-15 pounds, including children, and groceries for four weeks. If puncture site is at wrist do NOT lift more than three pounds for three days. - May walk up stairs. -May shower. -No excessive scrubbing of the affected site (groin). -May ride in car. -May resume sexual intercourse after 1-2 weeks. -No MRI for 12 days. -May drive in 4-7 days. -If puncture site is at the wrist do not manipulate the wrist for 24 hours, and no soaking wrist for three days. Second Week: -May take a bath -May start walking 3 times a week for 15-20 minutes at a leisurely pace. You should be able to carry on a conversation comfortably without feeling winded. -No strenuous activity as in jogging, running, weight lifting, stair steppers, etc. until the wide area network systems administrator approves these activities. Check with the wide area network systems administrator on your first follow-up visit. CALL YOUR BINGO WORKER: -If bleeding should occur from the catheter insertion site- apply pressure to the site then immediately call us. -Report any fever, redness, drainage, increased swelling, or firmness at the catheter insertion site. Some bruising or slight swelling may be present at the time of discharge. -Should arm or leg become cold, numb, white, or blue, contact the wide area network systems administrator immediately. -IF you should experience episodes of angina, e.g. chest discomfort, heaviness, tightness, pressure burning with or without radiation to the neck, jaw, arms or back- use 1 Nitrostat tablet under your tongue every 5-10 minutes and up to three tablets. IF NO RELIEF, CALL 911 or GO TO THE NEAREST EMERGENCY ROOM. -Please notify our office if you have recurrent angina. -Cardiac Rehab Education Provided. Participation in the Cardiopulmonary Rehabilitation program is recommended. The attending wide area network systems administrator or a nurse clinician should provide you with specific instructions regarding activity, diet, medications, and further follow up for you. Follow the medication instructions provided on your discharge. If the dosages and instructions on this sheet differ from the dosage and instructions on the bottle, follow the instructions on the bottle. [facility] is not responsible for incorrect prescription information provided by the patient during their visit. Do not stop your medications without consulting your health care provider. Please take the list with you to your next doctor's appointment.[facility] Work Phone: Progress note No data available for this section [facility] [place] Summary Purpose Family History No Family History Records Found Relationship Condition Age at Onset Recorded Date/T chucky Not Specified Non-Hodgkin's lymphoma Unknown Diabetes mellitus Unknown father Aneurysm Unknown Diverticulitis Unknown Relationship Condition Age at Onset Recorded Date/T chucky mother Diabetes mellitus Unknown Non-Hodgkin's lymphoma Unknown Coronary artery disease Unknown Myocardial infarction Unknown Hypothyroidism Unknown father Aneurysm Unknown Diverticulitis Unknown Advance Directives No Advanced Directives Records Found Advance Directive Response Recorded Date/ Time Advance Directives No March 27 4 1:17pm Advance Directive Response Recorded Date/ Time Advance Directives No March 27 4 12:17pm Chief Complaint and Reason for Visit Chief Complaint Screening Screening Chief Complaint stemi stemi Reason for Visit ST elevation NJ (TOMMY [place]) Additional Source Comments (unrecognized sect ion and content) No Status Records FoundNo Status Records FoundNo Status Records FoundNo Status Records Found INFORMATION SOURCE (unrecogn ized section and content) DATE CREATED AUTHOR 02/08/2022 [facility] DATE CREATED AUTHOR AUTHOR'S ORGANIZ ATION 05/10/[address] [facility] DATE CREATED AUTHOR AUTHOR'S ORGANIZ ATION 10/02/2024 [facility] DATE CREATED AUTHOR AUTHOR'S ORGANIZ ATION 10/30/2024 [facility] Source Comments (unrecognize d section and content) In the event this informatio n is protected by the Federal Confidentiality of Alcohol and Drug Abuse Patient Records regulations: The Federal rules restrict any use of the information to criminally investigate or prosecute any alcohol or drug abuse patient.[facility] Patient Care team informatio n (unrecognized section [...] Provide r Active Start: March 30, 2024 Team Status: Inactive Member Role Status Dates Josette Nova MD Emergency Provider Active Start: August 24, 2024 End: August 25, 2024 Andrea Torres MD Primary Care Provider Active Start: August 24, 2024 End: August 25, 2024 Guilherme Joseph DO Admit Provider, Att ending Provider Active Start: August 24, 2024 End: August 25, 2024 Sandy Henderson MD Other Provider Active Start: N ov2023 End: August 25, 2024 Team Status: Active Member Role Status Dates Josette Nova MD Emergency Provider Active Start: August 24, 2024 Andrea Torres MD Primary Care Provider Active Start: August 24, 2024 Guilherme Joseph DO Admit Provider, Other Provider Ac tive Start: August 24, 2024 Sandy Henderson MD Attending Provider, Other Provider Active Start: August 24, 2024 FOR RECORDS PERTAINING TO PATIENTS WHO [...] BE BASED ON THE PRIMARY CLINICAL RECORDS. [employer] [facility]. provides no warranty or guarantee of the accuracy or completeness of information in this document.
[2024-11-03 09:14] LABS: Estimated Average Glucose 120 mg/dL; Glycohemoglobin A1C 5.8 % (4.5-6.2)
[2024-11-03 09:33] LABS: Alanine Aminotransferase 26 U/L (16-63); Albumin Globulin Ratio 1.1; Albumin Level 3.8 g/dL (3.4-5.0); Alkaline Phosphatase 97 U/L (46-116); Anion Gap 9.3; Aspartate Amino Transferase 14 U/L (15-37); BUN Creatinine Ratio 11.8; Bilirubin Total 0.8 mg/dL (0.2-1.0); Calcium 9.2 mg/dL (8.5-10.1); Carbon Dioxide 28.3 mmol/L (21.0-32.0); Chloride 106 mmol/L (98-107); Chol HDL Ratio 2.5; Cholesterol 118 mg/dL (<=200); Estimated GFR (African America >60 (>=60 mL/min/1.73m^2); Estimated GFR (Non-African Ame >60 (>=60 mL/min/1.73m^2); Free T3 3.26 pg/mL (2.18-3.98); Globulin 3.5 g/dL; Glucose 101 mg/dL (74-106); HDL Cholesterol 48 mg/dL (40-60); LDL Cholesterol Calculated 54.4 mg/dL; Potassium 4.6 mmol/L (3.5-5.1); Sodium 139 mmol/L (136-145); Thyroid Stimulating Hormone 3.828 uIU/mL (0.358-3.740); Total Protein 7.3 g/dL (6.4-8.2); Triglycerides 78 mg/dL (<=150); VLDL CHOLESTEROL 15.6 mg/dL
[2024-11-04 04:07] LABS: PSA, Free 0.59 ng/mL; Prostate Specific Ag 2.7 ng/mL (0.0-4.0)
== END 2024-11-03 08:43 | disposition home or self-care (01) ==
LOC: LAB 08:44
PROVIDERS: PCP Family Medicine; Visit Provider Family Medicine
DX: Z00.00 Encounter for general adult medical examination without abnormal findings (principal); R20.2 Paresthesia of skin
CPT/HCPCS: 36415; 72040; 80053; 80061; 83036; 84153; 84154; 84436; 84443; 84481; 85025